=== PATIENT | female | born 1945 | race Caucasian/White ===

== ENCOUNTER 2017-05-02 10:00 | Outpatient (RCR) | payer MEDICARE, BC, SELFPAY | END 2017-05-23 | LOC: PT 10:00 | PROVIDERS: Visit Provider Orthopaedic Surgery | DX: S83.241A Other tear of medial meniscus, current injury, right knee, initial encounter (principal); M17.12 Unilateral primary osteoarthritis, left knee | CPT/HCPCS: G8978; G8979; G8980; 97010; 97014; 97016; 97033; 97035; 97110; 97140; 97161; G0283 ==

== ENCOUNTER → 2017-11-25 10:50 | Outpatient (CLI) | payer MEDICARE, BC, SELFPAY | PROVIDERS: PCP Internal Medicine; Visit Provider Internal Medicine | DX: Z01.810 Encounter for preprocedural cardiovascular examination (principal); I10 Essential (primary) hypertension | CPT/HCPCS: 93005 ==

== ENCOUNTER → 2018-04-14 09:25 | Outpatient (CLI) | payer MEDICARE, SELFPAY ==
--- NOTE | 2018-04-14 09:28 | XR_ITS ---
XR knee LT 3V ITS.REASON: Lt knee torn meniscus, left knee pain ORDERING PHYSICIAN: Keyana Lopez MD PATIENT AGE: 73 years COMPARISON: 12/04/2016 FINDINGS: Moderate osteoarthritic changes are present involving the medial compartment and patellofemoral joint. The medial joint space appears slightly more narrowed than when compared to the previous exam. No fracture or dislocation. No lytic or blastic change. IMPRESSION: Moderate osteoarthritis of the left knee slightly worsened when compared to the previous exam
== END ==
PROVIDERS: PCP Internal Medicine; Visit Provider Orthopaedic Surgery
DX: M25.562 Pain in left knee (principal)
CPT/HCPCS: 73562

== ENCOUNTER → 2018-06-17 08:32 | Outpatient (CLI) | payer MEDICARE, SELFPAY ==
--- NOTE | 2018-06-17 08:36 | MM_ITS ---
MM Dig screening mamm BI w/CAD CAD Screening COMPARISON: Digital mammograms with CAD 03/27/2016 and 03/21/2015 INDICATION: Is a history of breast cancer in a patient maternal cousin diagnosed before menopause. TECHNIQUE: Standard CC and MLO images were obtained. R2 CAD reviewed. FINDINGS: The breasts are composed primarily of fat with minimal scattered fibroglandular densities seen in each breast. There is a stable benign-appearing nodular density upper outer quadrant right breast there is a mole marker right breast. There is a small asymmetric density central portion right breast with associated microcalcifications. This was seen previously but there appears be a subtle change in density and possibly a couple of new microcalcifications associated. Recommend the patient return for spot compression magnification views in MLO and CC projection and ultrasound may be necessary as well. IMPRESSION: Fatty type breast parenchyma with possible change in asymmetric density right breast BI-RADS Category: 0 Need Additional Imaging Evaluation RECOMMENDED FOLLOW-UP: IMM - IMMEDIATE FOLLOW-UP RECOMMENDED (A letter has been sent to the patient regarding results of the study.)
== END ==
PROVIDERS: PCP Internal Medicine; Visit Provider Internal Medicine
DX: Z12.31 Encounter for screening mammogram for malignant neoplasm of breast (principal)
CPT/HCPCS: 77067

== ENCOUNTER → 2018-06-29 14:24 | Outpatient (CLI) | payer MEDICARE, BC, SELFPAY ==
--- NOTE | 2018-06-29 14:29 | MM_ITS ---
MM Dig mamm DX unilat RT CAD COMPARISON: Digital mammograms with CAD 06/17/2018 INDICATION: Evaluation of asymmetric density right breast and calcifications TECHNIQUE: Possible compression MLO and CC views and spot compression 90 degree lateral view FINDINGS: There is a collection of microcalcifications central portion of the right breast at approximately the 12:00 position with associated small irregular density. Has been interval increase in number of the microcalcifications since the previous digital mammogram with CAD 03/27/2016. The calcifications have a primarily benign appearance but S/P considered somewhat indeterminate and in view of the interval increase in calcifications from the previous study in 2016, recommend biopsy likely with stereotactic guidance. IMPRESSION: Asymmetric density with new microcalcifications upper central portion right breast, recommend biopsy BI-RADS Category: 4 Suspicious Abnormality-Biopsy Considered RECOMMENDED FOLLOW-UP: BIO - BIOPSY RECOMMENDED (A letter has been sent to the patient regarding results of the study.)
--- NOTE | 2018-06-29 14:30 | US_ITS ---
US breast RT complete COMPARISON: Diagnostic mammogram right breast same date HISTORY: Small asymmetric density with microcalcifications some of which appear to be new on diagnostic mammogram views TECHNIQUE: Targeted ultrasound upper inner quadrant FINDINGS: There is moderate fairly homogeneous echogenicity of the breast parenchyma. There is a tiny hypoechoic cystic-appearing lesion at the 12:00 position near the nipple measuring 0.3 x 0.3 x 0.3 cm. There is a similar appearing tiny hypoechoic cystic lesion at the 1:00 position near the nipple measuring 0.4 x 0.4 x 0.2 cm. There is no suspicious solid lesions seen. There are 2 normal-appearing nodes in the axilla. IMPRESSION: Tiny hypoechoic cystic lesions as described., No other significant abdomen I noted however in view of the new microcalcifications again I would recommend biopsy. BI-RADS Category 4
== END ==
PROVIDERS: PCP Internal Medicine; Visit Provider Internal Medicine
DX: R92.8 Other abnormal and inconclusive findings on diagnostic imaging of breast (principal)
CPT/HCPCS: 76641; 77065

== ENCOUNTER → 2018-07-07 11:25 | Outpatient (CLI) | payer MEDICARE, BC, SELFPAY ==
--- NOTE | 2018-07-07 11:52 | MM_ITS ---
MM stereotactic loc RT, MM clip placement RT ORDERING PHYSICIAN: Gray Arshad PATIENT AGE: 73 years Comparison: 06/17/2018 HISTORY: Right Breast calcifications PROCEDURE: The patient was given 1 mg of Xanax, Lortab 5 mg, and analgesia and minor sedation. The patient was placed on the stereotactic table and the abnormality was localized in the most appropriate projection. The breast was prepped in the routine manner, with sterile prep and the overlying skin anesthetized. A 3 to 4 mm skin incision was performed and the 9 gauge vacuum-assisted core biopsy needle was advanced to the region of the calcification in the upper aspect and medial aspect of the right breast. Pre- and post fire images were obtained. After adequate positioning relative to the calcifications was ensured, multiple biopsies were obtained in the region of the calcifications specifically. The core biopsies obtained were sent for specimen mammography. After the calcifications were indeed identified on the specimen mammogram, the procedure was terminated. A tiny titanium nonferromagnetic MicroMark was positioned through the mammotome needle into the biopsy site. The patient tolerated the procedure well left radiology suite in stable condition. No immediate consultation. SPECIMEN RADIOGRAPH: The mammographically evident calcifications from the prior study are currently evident within the [place] dish and within the specimens obtained during mammotome procedure. This is considered an adequate specimen and the procedure was terminated. Pathology: Benign breast with fibromatoid change. Microcalcifications were present. Negative for atypia or malignancy IMPRESSION: Successful stereotactic directed biopsy of the right breast showing benign findings. Right BREAST MAMMOGRAM: Compared to the prior study, the previously noted calcification have been removed. A small MicroMark clip was inserted into the region of the calcifications. Previously noted calcifications are no longer apparent There is evidence of soft tissue changes in the region of the biopsy was soft tissue gas and edema. IMPRESSION: 1. Adequate placement of the MicroMark clip postbiopsy. 2. Postbiopsy changes within the right breast with removal of calcifications
== END ==
PROVIDERS: PCP Internal Medicine; Visit Provider Internal Medicine
DX: R92.8 Other abnormal and inconclusive findings on diagnostic imaging of breast (principal)
CPT/HCPCS: 19081; 77065

== ENCOUNTER → 2018-08-26 10:07 | Outpatient (CLI) | payer MEDICARE, BC, SELFPAY ==
--- NOTE | 2018-08-26 10:17 | XR_ITS ---
EXAM: XR lumbar spine min 4V HISTORY: Low back pain ITS.REASON: RT LUMBAR BACK PAIN ORDERING PHYSICIAN: Gray Arshad PATIENT AGE: 73 years COMPARISON: None FINDINGS: There is mild dextroscoliotic curvature of the upper lumbar spine though this could be positional of the patient on the radiographic table. All lumbar vertebrae appear intact. There is a transitional vertebrae at the lumbosacral junction with almost complete lumbarization of S1 bilaterally. There is no significant disc space narrowing. However there are prominent hypertrophic facet changes throughout the entire lumbar spine but especially at the L4-5 and L5-S1 levels. There is no pars defect. The SI joints are normal. . 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
== END ==
PROVIDERS: PCP Internal Medicine; Visit Provider Internal Medicine
DX: M54.5 Low back pain (principal)
CPT/HCPCS: 72110

== ENCOUNTER 2018-10-01 10:00 | Outpatient (RCR) | payer MEDICARE, BC, SELFPAY | END 2018-10-01 10:05 | disposition home or self-care (01) | LOC: PT 10:00 | PROVIDERS: Visit Provider Internal Medicine | DX: M54.5 Low back pain (principal) | CPT/HCPCS: 97010; 97014; 97035; 97110; 97163; G0283 ==

== ENCOUNTER → 2019-07-21 10:51 | Outpatient (CLI) | payer MEDICARE, BC, SELFPAY ==
--- NOTE | 2019-07-21 10:52 | MM_ITS ---
PROCEDURE: MM DIG SCREENING MAMM BI W/CAD BILATERAL DIGITAL BREAST TOMOSYNTHESIS INCLUDED Patient Age:74Y CLINICAL INDICATION: SCREENING no hormones. No new complaints. Previous stereotactic biopsy right breast 2019. Maternal cousin with breast cancer in her 40s COMPARISON: [facility] DIG MAMM-SCREEN IVANA from 01/27/2013 [facility] DIG MAMM-SCREEN IVANA from 02/04/2014 [facility] DIG MAMM-SCREEN IVANA from 03/21/2015 [facility] DIG MAMM-SCREEN IVANA from 03/27/2016 [facility] MM Dig screening mamm BI w/CAD from 06/17/2018 DXRT MM Dig mamm DX unilat RT CAD from 06/29/2018 STRT MM stereotactic loc RT from 07/07/2018 CLIPRT MM clip placement RT from 07/07/2018 TECHNIQUE: Standard CC and MLO images were obtained. R2 CAD reviewed. Digital breast tomosynthesis included FINDINGS: Lower density breast with moderate of fatty replacement and minimal scattered fibroglandular elements. We also again see some scattered small nodular densities bilaterally reflecting benign features including a few likely reflecting small intramammary lymph nodes.. Left breast.: No new areas of concern. A few tiny scattered nodular densities again noted in can be followed.. Right breast. No significant new findings. There is a metallic micro marker clip from stereotactic biopsy which removed a small grouping of calcifications at the superior left breast, in 2019. No significant new findings otherwise. A few tiny scattered small nodular densities appears similar to previous studies and can be followed in 1 year IMPRESSION: No significant new findings. Bilateral follow-up mammogram 1 year recommended and would be encouraged. BI-RAD Category: 2 Benign Finding(s) FOLLOW-UP: 1YR 1 Year Follow-up (A letter has been sent to the patient regarding results of the study.) The the the the Dictated by: Raffy Sanderson MD 07/27/2019 09:51 Electronically signed by Raffy Sanderson MD in [place] 07/27/2019 09:51
== END ==
PROVIDERS: PCP Internal Medicine; Visit Provider Internal Medicine
DX: Z12.31 Encounter for screening mammogram for malignant neoplasm of breast (principal)
CPT/HCPCS: 77063; 77067

== ENCOUNTER → 2020-05-05 14:19 | Outpatient (CLI) | payer MEDICARE, BC, SELFPAY ==
--- NOTE | 2020-05-05 14:24 | XR_ITS ---
PROCEDURE: XR KNEE LT 4V CLINICAL INDICATION: Left knee pain COMPARISON: CR [id number] KNEE-3 VIEWS-LT from 12/04/2016 CR [id number] XR knee LT 3V from 04/14/2018 FINDINGS: Severe osteoarthritic changes are present involving the medial compartment with moderate osteoarthritis of the patellofemoral joint. No fracture or dislocation. Other findings:None. IMPRESSION: Severe osteoarthritic changes slightly worse Dictated by: Beni Virk MD 05/05/2020 17:03 Beni Virk MD in [place] 05/05/2020 17:03
== END ==
PROVIDERS: PCP Internal Medicine; Visit Provider Orthopaedic Surgery
DX: M17.12 Unilateral primary osteoarthritis, left knee (principal)
CPT/HCPCS: 73564

== ENCOUNTER → 2020-10-13 08:22 | Outpatient (CLI) | payer MEDICARE, OTHER, SELFPAY ==
--- NOTE | 2020-10-13 08:24 | MM_ITS ---
PROCEDURE INFORMATION: Exam: MG Screening 3D Mammography Exam date and time: 10/13/2020 8:24 AM Age: 75 years old Clinical indication: Encounter for screening mammogram for malignant neoplasm of breast TECHNIQUE: Imaging protocol: Screening tomosynthesis and 2D mammography including computer-aided detection (CAD) when performed. COMPARISON: 1. MG MM DIG SCREENING MAMM BI W/CAD 07/21/2019 11:02 AM 2. MG CLIPRT MM clip placement RT 07/07/2018 1:09 PM FINDINGS: MAMMOGRAPHY: Breast composition: The breast tissue is composed of scattered areas of fibroglandular density. Mass: None. Architectural distortion: None. Calcifications: No suspicious calcifications. Asymmetric density: None. Skin thickening: None. Axillary adenopathy: None. IMPRESSION: No mammographic evidence of malignancy. Annual screening is recommended unless otherwise clinically indicated. ASSESSMENT: BI-RADS Category 1: Negative
== END ==
PROVIDERS: PCP Internal Medicine; Visit Provider Internal Medicine
DX: Z12.31 Encounter for screening mammogram for malignant neoplasm of breast (principal)
CPT/HCPCS: 77063; 77067

== ENCOUNTER → 2021-02-12 11:27 | Outpatient (CLI) | payer MEDICARE, OTHER, SELFPAY | PROVIDERS: PCP Internal Medicine; Visit Provider Internal Medicine | DX: Z20.822 Contact with and (suspected) exposure to COVID-19 (principal); U07.1 COVID-19 | CPT/HCPCS: C9803; U0003; U0005 ==

== ENCOUNTER 2021-02-14 09:57 | Outpatient (CLI) | payer MEDICARE, OTHER, SELFPAY ==
[2021-02-14] VITALS (8 sets, daily range): BP systolic 107–140; BP diastolic 59–79; PULSE 57–89; RESP 18; TEMP 36.6–36.9; O2SAT 96–99
== END 2021-02-14 13:51 | disposition home or self-care (01) ==
PROVIDERS: PCP Internal Medicine; Visit Provider Emergency Medicine
DX: U07.1 COVID-19 (principal)
CPT/HCPCS: 96365

== ENCOUNTER 2021-03-25 11:43 | Emergency (ER) | payer MEDICARE, OTHER, SELFPAY ==
[2021-03-25 12:05] VITALS: BP 140/92; PULSE 74; RESP 17; TEMP 37; O2SAT 98; BMI 28.3
--- NOTE | 2021-03-25 12:43 | HMH.EDUTC ---
[facility] Disposition Clinical Impression: Low back pain with sciatica Qualifiers: Chronicity: unspecified Back pain laterality: right Sciatica laterality: sciatica of right side Qualified Code(s): M54.41 - Lumbago with sciatica, right side Disposition: Home, Self-Care Condition on Discharge: Good Instructions: Low Back Pain, DI for Low Back Pain, DI for Sciatica Additional Instructions: *Remember you had a Toradol shot in the clinic today, which is similar to Motrin *Not additional anti-inflammatory like ibuprofen motrin, aleve, advil with the above amount of Etodolac You can still take Tylenol every 4 hours as needed if you need something else for pain *Ice 20 minutes every 2 hours for the first 48 hours after the initial injury followed by moist heat every 20 minutes 3-4 times a day to affected area *Muscle relaxer every 8 hours as needed for muscle spasms or as you was previously prescribed but remember, it WILL cause drowsiness You cannot take it and drive, operate machinery or care for small children. *Keep this area active, no movement leads to more stiffness, However take it easy and avoid heavy lifting pushing or pulling *Follow up with you family doctor if no improvement for further treatment Prescriptions: Etodolac 200 mg PO Q8HP PRN #12 cap PRN Reason: Moderate Pain Transmission Status: Pending to Clinic Pharmacy [facility] Referrals: Gray Arshad [Primary Care Provider] - As needed Time of Disposition: 13:32 Medical Decision Making - Joe Inquiry Pt receiving controlled substance: No Joe was queried for this patient: No Vital Signs: 03/25/21 12:05 03/25/21 13:14 Temperature 98.6 F 98.6 F Temperature Source Oral Pulse Rate 74 Pulse Rate [Right Brachial] 74 Respiratory Rate 17 17 Blood Pressure 140/92 H Blood Pressure [Right Arm] 140/92 H Blood Pressure Mean [Right Arm] 108 Blood Pressure Source [Right Arm] Automatic Cuff Blood Pressure Position [Right Arm] Sitting 02 Sat by Pulse Oximetry 98 Oxygen Delivery Method Room Air Orders (Tests/Meds): ED MEDICATIONS Discontinued Medications Generic Name Dose Route Start Last Admin Trade Name Freq PRN Reason Stop Dose Admin Ketorolac Tromethamine 60 mg 03/25/21 12:50 03/25/21 13:09 Ketorolac 60mg/2ml Vial IM 03/25/21 12:51 60 mg ONCE ONE Administration Methylprednisolone Sodium Succinate 125 mg 03/25/21 12:50 03/25/21 13:09 Methylprednisolone Sod Succ 125mg Vial IM 03/25/21 12:51 125 mg ONCE ONE Administration ORDERS Category Date Time Status Lumbar spine XR 2-3 views [XR lumbar spine 2-3V] Stat Exams 03/25/21 12:49 Taken - Radiology Data #1 Image(s): L-Spine Image Reviewed: Yes I reviewed the patient's radiology image w/the ED provider Preliminary Findings: No Fracture Seen [facility] HPI - General Stated complaint: lower back pain Time Seen by Provider: 03/25/21 12:43 Mode of Arrival: Ambulatory Source of Information: Patient Limitations: No Limitations Description of Symptoms (Recalled from Triage Doc. by RN): PATIENT C/O RIGHT LOWER BACK PAIN RADIATING DOWN LEG THAT STARTED YESTERDAY HEENT Symptoms (Recalled from RN notes): No Resp Symptoms (Recalled from RN notes): No Skin Symptoms (Recalled from RN notes): No MS Symptoms (Recalled from RN notes): Yes Functional Status (Recalled from RN notes): WNL - History of Present Illness Provider Complaint: Patient states that she is scheduled to have knee replacement in a few weeks and she has been walking with a limp and has been favoring her left knee States that yesterday she started having some pain in her lower back and took one of her muscle relaxers that she has at home and it helped a little but she her back pain has continued to get worse over the night and now radiates into her right buttock and upper leg Denies known injury, denies loss of control of bowel and bladder - Related Data Home Medications Medication Instructions Recorded Linda
--- NOTE | 2021-03-25 12:49 | XR_ITS ---
PROCEDURE INFORMATION: Exam: XR Lumbosacral Spine Exam date and time: 03/25/2021 12:49 PM Age: 76 years old Clinical indication: Low back pain TECHNIQUE: Imaging protocol: XR of the lumbosacral spine. Views: 2 or 3 views. COMPARISON: CR [id number] XR lumbar spine min 4V 08/26/2018 10:31 AM FINDINGS: Bones/joints: No acute fracture. Mild dextroscoliosis. Prominent multilevel facet arthropathy. Soft tissues: Unremarkable. IMPRESSION: No acute findings.
[2021-03-25 13:14] VITALS: BP 140/92; PULSE 74; RESP 17; TEMP 37; O2SAT 98
== END 2021-03-25 13:38 | disposition home or self-care (01) ==
PROVIDERS: Emergency Provider Nurse Practitioner; PCP Internal Medicine
DX: M54.41 Lumbago with sciatica, right side (principal); E78.5 Hyperlipidemia, unspecified; I10 Essential (primary) hypertension; Z79.899 Other long term (current) drug therapy
CPT/HCPCS: G0463; 72100; 96372; 99202

== ENCOUNTER → 2021-03-30 16:31 | Outpatient (CLI) | payer MEDICARE, OTHER, SELFPAY | PROVIDERS: Visit Provider Internal Medicine | DX: N39.0 Urinary tract infection, site not specified (principal) | CPT/HCPCS: 87086; 87088; 87186 ==

== ENCOUNTER → 2021-04-14 09:05 | Outpatient (CLI) | payer MEDICARE, OTHER, SELFPAY ==
--- NOTE | 2021-04-14 | CA_ITS ---
APPROVED REPORT Left Lower Extremity Venous Study for DVT. [employer] Manager: Odette Mota RVT Indications Lower Extremity Edema: Left PT HAD TOTAL LT KNE REPLACEMENT 04/09/21. C/O EDEMA AND REDNESS OF LEFT THIGH Risk Factors Post OP Vein Imaging CFV (L): compressive, spontaneous, phasic, augmentation FEM (L): compressive, spontaneous, phasic, augmentation POP (L): compressive, spontaneous, phasic, augmentation PTV (L): Compressible GSV (L): Compressible Peroneals (L):Compressible GAS (L): Compressible Findings Study suggests no evidence of DVT or SVT of the left lower extremity. Unable to visualize distal left femoral vein r/t dressing covering. Conclusion Study suggests no evidence of DVT or SVT of the left lower extremity. Unable to visualize distal left femoral vein r/t dressing covering. Electronically signed by : Beni Virk MD 04/16/2021 11:29:01
== END ==
PROVIDERS: PCP Internal Medicine; Visit Provider Internal Medicine Adolescent Medicine
DX: R60.0 Localized edema (principal)
CPT/HCPCS: 93971

== ENCOUNTER 2021-07-27 14:00 | Outpatient (RCR) | payer MEDICARE, OTHER, SELFPAY | END 2021-07-30 14:05 | disposition home or self-care (01) | LOC: PT 14:00 | PROVIDERS: PCP Internal Medicine; Visit Provider Orthopaedic Surgery | DX: M54.50 Low back pain, unspecified (principal); M25.562 Pain in left knee; Z96.652 Presence of left artificial knee joint | CPT/HCPCS: 97010; 97014; 97110; 97140; 97163; 97164; G0283 ==

== ENCOUNTER → 2021-12-11 09:58 | Outpatient (CLI) | payer MEDICARE, OTHER, SELFPAY | PROVIDERS: PCP Internal Medicine; Visit Provider Internal Medicine | DX: Z20.822 Contact with and (suspected) exposure to COVID-19 (principal) | CPT/HCPCS: 97162; C9803; U0003; U0005 ==

== ENCOUNTER → 2021-12-20 10:58 | Outpatient (CLI) | payer MEDICARE, OTHER, SELFPAY ==
--- NOTE | 2021-12-20 11:03 | MM_ITS ---
PROCEDURE INFORMATION: Exam: MG Bilateral Screening 3D Mammography Exam date and time: 12/20/2021 11:05 AM Age: 76 years old Clinical indication: Screening examination TECHNIQUE: Imaging protocol: Bilateral Screening tomosynthesis and 2D mammography including computer-aided detection (CAD) when performed. COMPARISON: 1. MG MM DIG SCREENING MAMM BI W/CAD 10/13/2020 8:27 AM 2. MG MM DIG SCREENING MAMM BI W/CAD 07/21/2019 11:02 AM FINDINGS: MAMMOGRAPHY: Breast composition: There are scattered areas of fibroglandular density. Mass: None. Architectural distortion: None. Calcifications: No suspicious calcifications. Asymmetric density: None. Skin thickening: None. Axillary adenopathy: None. IMPRESSION: No mammographic evidence of malignancy. Annual screening is recommended unless otherwise clinically indicated. ASSESSMENT: BI-RADS Category 1: Negative
== END ==
PROVIDERS: PCP Internal Medicine; Visit Provider Internal Medicine
DX: Z12.31 Encounter for screening mammogram for malignant neoplasm of breast (principal)
CPT/HCPCS: 77063; 77067

== ENCOUNTER 2022-01-11 10:00 | Outpatient (RCR) | payer MEDICARE, OTHER, SELFPAY | END 2022-01-11 10:05 | disposition home or self-care (01) | LOC: PT 10:00 | PROVIDERS: PCP Internal Medicine; Visit Provider Internal Medicine | DX: I83.11 Varicose veins of right lower extremity with inflammation (principal); I83.12 Varicose veins of left lower extremity with inflammation | CPT/HCPCS: 97140; 97162 ==

== ENCOUNTER → 2022-08-09 11:19 | Outpatient (CLI) | payer MEDICARE, OTHER, SELFPAY ==
--- NOTE | 2022-08-09 11:25 | XR_ITS ---
FINAL REPORT CLINICAL HISTORY: . unable to move right thumb, no injury FINDINGS: Right fingers Four views were obtained. There is no acute fracture or dislocation. There are moderate and severe degenerative changes, worse involving the 1st carpometacarpal joint. There is a 3 mm loose body adjacent to the 1st carpometacarpal. There is widening of the scapholunate interval, scapholunate ligament tear is not excluded. IMPRESSION: Degenerative changes as detailed above. Loose body adjacent to the 1st carpometacarpal. Possible scapholunate ligament tear. If indicated, MRI may be helpful. Reviewed, Interpreted and Dictated by Obey Rodriguez III, MD Transcribed by Nettie Lanza Authenticated and [facility]
== END ==
PROVIDERS: PCP Internal Medicine; Visit Provider Internal Medicine
DX: M79.644 Pain in right finger(s) (principal); M25.341 Other instability, right hand
CPT/HCPCS: 73140

== ENCOUNTER → 2022-12-23 09:57 | Outpatient (CLI) | payer MEDICARE, OTHER, SELFPAY ==
--- NOTE | 2022-12-23 10:01 | MM_ITS ---
PROCEDURE INFORMATION: Exam: MG Bilateral Screening 3D Mammography Exam date and time: 12/23/2022 9:54 AM Age: 77 years old Clinical indication: Screening examination TECHNIQUE: Imaging protocol: Bilateral Screening tomosynthesis and 2D mammography including computer-aided detection (CAD) when performed. COMPARISON: 1. MG MM DIG SCREENING MAMM BI W/CAD 12/20/2021 11:05 AM 2. MG MM DIG SCREENING MAMM BI W/CAD 10/13/2020 8:27 AM 3. MG MM DIG SCREENING MAMM BI W/CAD 07/21/2019 11:02 AM FINDINGS: MAMMOGRAPHY: Breast composition: There are scattered areas of fibroglandular density. Mass: No suspicious masses. Architectural distortion: No suspicious distortion. Calcifications: No suspicious calcifications. Asymmetric density: None. Skin thickening: None. Axillary adenopathy: None. IMPRESSION: No mammographic evidence of malignancy. Annual screening is recommended unless otherwise clinically indicated. ASSESSMENT: BI-RADS Category 1: Negative
== END ==
PROVIDERS: PCP Internal Medicine; Visit Provider Internal Medicine
DX: Z12.31 Encounter for screening mammogram for malignant neoplasm of breast (principal)
CPT/HCPCS: 77063; 77067

== ENCOUNTER → 2023-02-12 11:18 | Outpatient (CLI) | payer MEDICARE, OTHER, SELFPAY ==
--- NOTE | 2023-02-12 11:36 | CT_ITS ---
FINAL REPORT TECHNIQUE: Axial images through the abdomen and pelvis were performed without contrast. This study was performed with techniques to keep radiation doses as low as reasonably achievable, (ALARA). Individualized dose reduction techniques using automated exposure control or adjustment of mA and/or kV according to the patient's size were employed. CLINICAL HISTORY: ABD PAIN COMPARISON: None FINDINGS: Abdomen: There is scarring in the lingula. The liver parenchyma is homogeneous. There is a gallstone within the dependent distended gallbladder. Calcified granulomas are noted in the spleen. The pancreas, adrenals and kidneys are unremarkable. There is a moderate amount of stool throughout the colon. Pelvis: The urinary bladder is unremarkable. The appendix is not visualized. There is no pelvic mass or inflammation. There is a fat containing left inguinal hernia. IMPRESSION: Gallstone distended gallbladder. No kidney stones. Moderate constipation. Reviewed, Interpreted and Dictated by Cuco Bowen MD Transcribed by Megha Staples Authenticated and [facility]
[2023-02-12 12:26] LABS: Basophils % 0.4 % (0.1-2.0); Eosinophils % 0.3 % (0.1-12.0); Hematocrit 46.6 % (37.0-47.0); Hemoglobin 15.1 g/dL (12.2-16.2); Lymphocytes # 1.9 K/mm3 (0.7-4.5); Lymphocytes % 18.2 % (10-50); Mean Corpuscular HGB Conc 32.4 g/dL (31.8-35.4); Mean Corpuscular Hemoglobin 28.8 pg (27.0-31.2); Mean Corpuscular Volume 88.8 fl (81-99); Mean Platelet Volume 8.6 fl (7.4-10.4); Monocytes # 0.5 K/mm3 (0.1-1.0); Neutrophils # 8.1 K/mm3 (1.8-7.8); Neutrophils % 76.1 % (37.0-80.0); Platelet Count 410 K/mm3 (142-424); Red Blood Count 5.25 M/mm3 (4.20-5.40); Red Cell Distribution Width 12.9 % (11.5-17.5); White Blood Count 10.6 K/mm3 (4.8-10.8)
== END ==
PROVIDERS: PCP Internal Medicine; Visit Provider Internal Medicine
DX: R10.30 Lower abdominal pain, unspecified (principal); R19.7 Diarrhea, unspecified; Z87.19 Personal history of other diseases of the digestive system
CPT/HCPCS: 36415; 74176; 85025

== ENCOUNTER → 2023-03-17 07:55 | Outpatient (CLI) | payer MEDICARE, OTHER, SELFPAY ==
--- NOTE | 2023-03-17 07:58 | US_ITS ---
FINAL REPORT CLINICAL HISTORY: ABD PAIN,GASTRITIS COMPARISON: None FINDINGS: Sonographic images of the right upper quadrant were obtained. The pancreas is partially obscured. There is fatty infiltration of the liver. Gallstone is noted in the gallbladder. There is no evidence of biliary ductal dilatation.The common duct measures 4mm. Limited images of the right kidney are unremarkable. IMPRESSION: Cholelithiasis. Fatty liver. Reviewed, Interpreted and Dictated by Obey Rodriguez III, MD Transcribed by Megha Staples Authenticated and [facility]
== END ==
PROVIDERS: PCP Internal Medicine; Visit Provider Internal Medicine
DX: R10.11 Right upper quadrant pain (principal); K29.70 Gastritis, unspecified, without bleeding
CPT/HCPCS: 76705

== ENCOUNTER 2023-10-09 12:09 | Emergency (ER) | payer MEDICARE, OTHER, SELFPAY ==
[2023-10-09] VITALS (9 sets, daily range): BP systolic 136–163; BP diastolic 58–101; PULSE 56–91; RESP 20–25; TEMP 36.5–36.7; O2SAT 96–99; BMI 30.9
--- NOTE | 2023-10-09 12:18 | ECG_ITS ---
APPROVED REPORT Exam: Resting ECG HR:73 bpm ECG Measurements Heart Rate 73 AXES [place] 142 P 70 QRSd 98 QRS 36 QT 381 T 72 QTc 406 Conclusion SINUS RHYTHM Electronically signed by : JESSICA CARRANZA, 10/09/2023 15:44:56
--- NOTE | 2023-10-09 12:22 | PC.NURSE ---
Dr. De Paz at bedside
--- NOTE | 2023-10-09 12:29 | XR_ITS ---
FINAL REPORT CLINICAL HISTORY: Acute cough, malaise, tachypnea FINDINGS: Two views of the chest were obtained. The heart size and pulmonary vascularity are within normal limits. The mediastinum is normal. There is mild linear atelectasis or scarring in the right midlung. There is no acute infiltrate. There is no pneumothorax. The bony thorax is intact. IMPRESSION: Mild linear atelectasis or scarring in the right midlung. Reviewed, Interpreted and Dictated by Obey Rodriguez III, MD Transcribed by Katy Miller Authenticated and [facility]
--- NOTE | 2023-10-09 12:38 | HMH.EDGENADL ---
Discharge Plan Disposition Patient Disposition: Home, Self-Care Prescriptions Prescriptions: New prednisone 20 mg tablet 40 mg PO DAILY 5 Days Qty: 10 0RF No Action etodolac 200 MG capsule 200 mg PO Q8HP PRN (Reason: Moderate Pain) Qty: 12 0RF simvastatin 40 MG tablet 40 mg PO DAILY losartan 100 MG tablet 100 mg PO DAILY Referrals Follow up/Referrals: Gray Arshad MD [Primary Care Provider] - See instructions Activity Restrictions/Add. Instructions Additional Instructions/Restrictions: Call your family doctor to establish care for this visit to the emergency department and schedule follow-up within 48 hours to ensure improvement. If you have any worsening of your condition or any other concerning signs or symptoms, return to the emergency department or your primary care doctor for further evaluation. Clinical Impressions Clinical Impression: URI (upper respiratory infection), Bronchitis Discharge ED Provider: Jelani De Paz General Adult HPI General Chief complaint: Shortness of Breath/Dyspnea Stated complaint: cough, congestion, dizzy, fever, nausea SOA Time Seen by Provider: 10/09/23 12:15 Mode of Arrival: Family Vehicle Source of Information: Patient, Spouse and Medical Record Limitations: No Limitations Description of Symptoms (Recalled from ER Triage Doc. by RN): Pt c/o sinus congestion, SOA, non-productive cough, headache, and weakness. States she saw Dr. Arshad earlier this week and was prescribed Amoxicillin & steriods. Pt has been taking Robutussin DM for her cough wo much relief. Pt also reports coughing so much she has been having some dry-heaves. States they did a home test for covid on Fri that was negative. History of Present Illness HPI narrative: 78-year-old female history of hypertension, hyperlipidemia presenting with general malaise. Patient states that she has had viral-like symptoms for about a week at this point. Had fevers last week, cough and sneezing all weekend, primarily at night. Cough is productive of white sputum that is thick. Saw her family doctor 3 days prior to this visit, was prescribed 1000 mg amoxicillin twice daily and Robitussin. Was given IM steroid injection. Patient states that she initially felt better, feeling worse again. Cough is still productive of clear to white sputum, no fevers in the past few days, no vomiting, diarrhea, abdominal pain, chest pain, recent sick contacts, or any other concerns. States that she just feels generally unwell and needs to feel better. Please note that above description of symptoms, in this electronic medical record under categorization of recalled from ER triage doctor by RN are reflective of an initial nursing assessment, however, is not reflective of my full history and physical exam that was personally taken and clarified. Consequentially, this preceding description of symptoms, which may include the patient's categorized chief complaint in the EMR, do not reflect my personal clinical impression, and the ultimate description of history of present illness and patient stated complaints should be deferred to this section of the note. Unless stated otherwise or congruent with this section of the note, additional signs, symptoms, or incongruence should be interpreted as inaccurate with my clinical impression. Related Data Home Medications Medication Instructions Recorded Confirmed losartan 100 mg tablet 100 mg PO DAILY Hypertension 01/03/18 03/25/21 simvastatin 40 mg tablet 40 mg PO DAILY High cholesterol 01/03/18 03/25/21 Previous Rx's Medication Instructions Recorded etodolac 200 mg capsule 200 mg PO Q8HP PRN Moderate Pain 03/25/21 #12 caps prednisone 20 mg tablet 40 mg (2 x 20 mg) PO DAILY 5 days 10/09/23 #10 tabs Allergies Allergy/AdvReac Type Severity Reaction Status Date / Time venom-honey bee Allergy Mild swelling-or Verified 08/18/20 14:07 [bee venom (honey bee)] al/throat HORSE DANDER AdvReac Unknown S-SWELLS-OR Uncoded 08/18/20 14:07 AL/THROAT PFSH PFSH Disclaimer: The information contained in this section may have been updated after the patient was seen, as this information can be updated by other users. Social History Smoking Status: Never smoker alcohol intake: never substance use type: denies use current occupational status: other Travel in the last 8 weeks: None caffeine: Yes ROS Obtained: Yes All systems reviewed & no additional complaints except as documented Physical Exam General General appearance: alert, in no apparent distress and other (Appears tired) Head Head exam: atraumatic and normocephalic Eye Eye exam: Present normal appearance, PERRL and EOMI ENT ENT exam: Present mucous membranes moist Neck Neck exam: Present normal inspection, full ROM and trachea midline Respiratory Respiratory exam: Present normal lung sounds bilaterally and other (Intermittently sniffling and coughing); Absent respiratory distress, wheezes, stridor, accessory muscle use or prolonged expiratory phase Cardiovascular Cardiovascular exam: Present regular rate and normal rhythm Abdominal Exam Abdominal exam: Present soft; Absent distention, tenderness, guarding, rebound or rigidity Extremities Exam Extremities exam: Present edema (Bilateral nonpitting (history of lymphedema)) Neurological Exam Neurological exam: Present alert, oriented X3, CN II-XII intact and normal gait; Absent motor sensory deficit Skin Skin exam: Present warm and dry; Absent diaphoresis or erythema Medical Decision Making Medical Records Medical records reviewed: Yes I reviewed the patient's medical records. Joe Inquiry Pt receiving controlled substance: No Joe was queried for this patient: No Vital Signs: 10/09/23 12:10 10/09/23 12:16 10/09/23 12:31 Temperature 97.7 F Temperature Source Oral Pulse Rate 91 H 70 Pulse Rate [Right] 82 Respiratory Rate 25 H Blood Pressure 163/101 H 151/72 H Blood Pressure [Right Arm] 163/101 H Blood Pressure Mean 126 98 Blood Pressure Mean [Right Arm] 121 Blood Pressure Source [Right Arm] Automatic Cuff 02 Sat by Pulse Oximetry 98 98 Oxygen Delivery Method Room Air 10/09/23 13:01 10/09/23 13:31 10/09/23 14:01 Temperature Temperature Source Pulse Rate 58 L 56 L 68 Pulse Rate [Right] Respiratory Rate Blood Pressure 155/81 H 153/63 H 136/58 L Blood Pressure [Right Arm] Blood Pressure Mean 105 93 84 Blood Pressure Mean [Right Arm] Blood Pressure Source [Right Arm] 02 Sat by Pulse Oximetry 98 96 99 Oxygen Delivery Method Lab Data Lab Results 10/09/23 12:24: WBC 9.2, RBC 5.02, Hgb 15.7, Hct 47.5 H, MCV 94.5, MCH 31.3 H, MCHC 33.1, RDW 13.7, Plt Count 288, MPV 9.4, Neut % (Auto) 78.1, Lymph % (Auto) 17.3, [place] % (Auto) 3.6, Eos % (Auto) 0.4, Baso % (Auto) 0.6, Neut # (Auto) 7.2, Lymph # (Auto) 1.6, [place] # (Auto) 0.3, Eos # (Auto) 0.0, Baso # (Auto) 0.1 10/09/23 12:50: Sodium 134 L, Potassium 3.9, Chloride 108 H, Carbon Dioxide 17 L, Anion Gap 12.9, BUN 13, Creatinine 0.60, Estimated Creat Clear 56, Estimated GFR 97, Est GFR ( Amer) 117, Glucose 124 H, Calcium 9.6, Total Bilirubin 0.5, AST 31, ALT 22, Alkaline Phosphatase 84, Troponin I < 0.01, Total Protein 7.3, Albumin 4.1, Globulin 3.2, Albumin/Globulin Ratio 1.3 10/09/23 12:24 10/09/23 12:50 Orders (Tests/Meds): ED MEDICATIONS Discontinued Medications Generic Name Dose Route Start Last Admin Trade Name Freq PRN Reason Stop Dose Admin Albuterol/Ipratropium 6 ml 10/09/23 13:24 10/09/23 13:40 Ipratropium/Albuterol 3 Ml Neb IH 10/09/23 13:25 6 ml ONCE ONE Administration ORDERS Category Date Time Status CXR 2 view (NOT portable) [XR chest 2V] Stat Exams 10/09/23 12:29 Completed CBC w/Auto Diff [Complete Blood Count Auto Diff] Stat Lab 10/09/23 12:24 Completed CMP [Comprehensive Metabolic Panel] Stat Lab 10/09/23 12:50 Results Procalcitonin Stat Lab 10/09/23 12:50 Results Trop I [Troponin I] Stat Lab 10/09/23 12:50 Results Troponin I Q3H Lab 10/09/23 15:45 Ordered Troponin I Q3H Lab 10/09/23 18:45 Ordered Medical Decision Narrative: 78-year-old female history of hypertension, hyperlipidemia presenting with general malaise. Patient states that she has had viral-like symptoms for about a week at this point. Had fevers last week, cough and sneezing all weekend, primarily at night. Cough is productive of white sputum that is thick. Saw her family doctor 3 days prior to this visit, was prescribed 1000 mg amoxicillin twice daily and Robitussin. Was given IM steroid injection. Patient states that she initially felt better, feeling worse again. Cough is still productive of clear to white sputum, no fevers in the past few days, no vomiting, diarrhea, abdominal pain, chest pain, recent sick contacts, or any other concerns. States that she just feels generally unwell and needs to feel better. History was obtained via conversation with patient and. On arrival, patient hemodynamically stable, alert, oriented x4, appropriate, GCS 15, moving all extremities spontaneously, pupils equal and reactive to light. Full physical exam performed and significant for tired appearing woman in no acute distress. Lungs are clear to auscultation bilaterally anterior and posteriorly, intermittently coughing and sniffling. Afebrile, normotensive/hypertensive, nontachycardic. Saturating appropriately on room air around 100%. Cardiac exam within normal limits. Differential includes viral syndrome, pneumonia, ACS, NV, among others. Patient was given a neb for symptomatic management and correction of underlying abnormalities. Workup independently interpreted and significant for nonactionable CBC or chemistry. Troponin negative. Chest x-ray without acute cardiopulmonary airspace disease, C radiology read for full review of final results. Independent interpretation of EKG shows sinus rhythm 73 beats minute no acute hearing changes concerning for ischemia. CA, QRS, QT intervals within normal limits. Heart score 2. On reevaluation patient still coughing and sneezing. Is recommended the patient stop taking amoxicillin given no evidence of pneumonia on chest x-ray. Likely representing URI, developing bronchitis. Because patient at baseline without signs or symptoms of clinical decompensation, deemed appropriate for discharge. Results were relayed to patient who voiced understanding and were agreeable to outpatient management and follow up. I discussed my clinical impression with patient and answered all questions. At this time, the evidence for any other entities in the differential is insufficient to warrant any further testing or ED observation. This was explained as well. Advisory was given that persistent or worsening symptoms require further evaluation. I confirmed the understanding of this discussion. [place] disclaimer Much of this encounter note is an electronic anesthesiology physician assistant spoken language to printed text. Electronic anesthesiology physician assistant of the spoken language may permit errors. Although I have reviewed the note, some errors may still exist. Critical Care Critical Care Time Critical Care Time: No
[2023-10-09 12:49] LABS: Basophils # 0.1 K/mm3 (0-0.2); Basophils % 0.6 % (0.1-2.0); Eosinophils % 0.4 % (0.1-12.0); Hematocrit 47.5 % (37.0-47.0); Hemoglobin 15.7 g/dL (12.2-16.2); Lymphocytes # 1.6 K/mm3 (0.7-4.5); Lymphocytes % 17.3 % (10-50); Mean Corpuscular HGB Conc 33.1 g/dL (31.8-35.4); Mean Corpuscular Hemoglobin 31.3 pg (27.0-31.2); Mean Corpuscular Volume 94.5 fl (81-99); Mean Platelet Volume 9.4 fl (7.4-10.4); Monocytes # 0.3 K/mm3 (0.1-1.0); Monocytes % 3.6 % (1.7-9.3); Neutrophils # 7.2 K/mm3 (1.8-7.8); Neutrophils % 78.1 % (37.0-80.0); Platelet Count 288 K/mm3 (142-424); Red Blood Count 5.02 M/mm3 (4.20-5.40); Red Cell Distribution Width 13.7 % (11.5-17.5); White Blood Count 9.2 K/mm3 (4.8-10.8)
[2023-10-09 13:05] LABS: Chloride 108 mmol/L (98-107); Potassium 3.9 mmoL/L (3.5-5.1); Sodium 134 mmol/L (136-145)
[2023-10-09 13:08] LABS: Alanine Aminotransferase 22 U/L (12-78); Albumin Level 4.1 g/dl (3.5-5.0); Albumin/Globulin Ratio 1.3 (1.1-1.8); Alkaline Phosphatase 84 U/L (38-126); Anion Gap 12.9 mEq/L (5-15); Aspartate Amino Transferase 31 U/L (14-36); Bilirubin,Total 0.5 mg/dl (0.2-1.3); Blood Urea Nitrogen 13 mg/dl (7-17); Calcium 9.6 mg/dl (8.4-10.2); Carbon Dioxide 17 mmol/L (22.0-30.0); Creatinine Clearance Estimated 56 mL/min (50-200); Estimated Glomerular Filt Rate 97 ml/min (>60); GFR (African American) 117 ML/MIN (>60); Globulin 3.2 g/dL (1.3-3.2); Glucose 124 mg/dl (74-100); Total Protein,Serum 7.3 g/dl (6.3-8.2)
[2023-10-09 13:21] LABS: Troponin I < 0.01 ng/ml (0.00-0.034)
[2023-10-09] MEDS: IPRATROPIUM/ALBUTEROL 3 ML NEB 6 ML IH (13:40)
--- NOTE | 2023-10-09 14:42 | PC.NURSE ---
at d/c pt reports that she is gonna pass out . She is already laying down in bed and side rails up. BP is 158/80 and HR 70-75. States I'm fainting . Pt still speaking and moving limbs appropriately. Pt's states she does this all the time with blood-work .
== END 2023-10-09 14:47 | disposition home or self-care (01) ==
PROVIDERS: Emergency Provider Emergency Medicine; PCP Internal Medicine
DX: J20.9 Acute bronchitis, unspecified (principal); R05.9 Cough, unspecified; J06.9 Acute upper respiratory infection, unspecified; R53.81 Other malaise; I10 Essential (primary) hypertension; E78.5 Hyperlipidemia, unspecified
CPT/HCPCS: 71046; 80053; 84145; 84484; 85025; 93005; 99284

== ENCOUNTER 2023-10-11 12:51 | Emergency (ER) | payer MEDICARE, OTHER, SELFPAY ==
--- NOTE | 2023-10-11 14:08 | ED_ITS ---
Discharge Plan Disposition Patient Disposition: Home, Self-Care Condition: Good Prescriptions Prescriptions: New azithromycin [Zithromax] 250 mg tablet 250 mg PO UD DOSE PK Qty: 6 0RF Rx Instructions: Take two (2) tablets today, then one (1) tablet days #2 thru #5 benzonatate 100 mg capsule 100 mg PO TIDP PRN (Reason: Cough) Qty: 30 0RF No Action etodolac 200 MG capsule 200 mg PO Q8HP PRN (Reason: Moderate Pain) Qty: 12 0RF amoxicillin 500 mg capsule See Rx Instructions .ROUTE .COMPLEX Patient Comments: TAKE TWO CAPSULES BY MOUTH TWICE DAILY FOR 10 DAYS -- FINISH ALL MEDICINE -- Rx Instructions: TAKE TWO CAPSULES BY MOUTH TWICE DAILY FOR 10 DAYS -- simvastatin 40 MG tablet 40 mg PO DAILY losartan 100 MG tablet 100 mg PO DAILY prednisone 20 mg tablet 40 mg PO DAILY 5 Days Qty: 10 0RF Referrals Follow up/Referrals: Gray Arshad MD [Primary Care Provider] - See instructions Activity Restrictions/Add. Instructions Additional Instructions/Restrictions: Drink plenty of fluids. Take tylenol or ibuprofen for pain or fever. Take the medications as directed. Follow up with your regular doctor. GO TO THE ER FOR ANY WORSENING SYMPTOMS Clinical Impressions Clinical Impression: Bronchitis, Viral syndrome Instructions Patient Instructions: DI for Acute Bronchitis, DI for Viral Syndrome Discharge ED Provider: Norbert Arias [facility] General Stated complaint: nausea cough bodyache Time Seen by Provider: 10/11/23 14:08 Related Data Home Medications Medication Instructions Recorded Confirmed losartan 100 mg tablet 100 mg PO DAILY Hypertension 01/03/18 10/11/23 simvastatin 40 mg tablet 40 mg PO DAILY High cholesterol 01/03/18 10/11/23 amoxicillin 500 mg capsule See Rx Instructions .Route .COMPLEX 10/11/23 Previous Rx's Medication Instructions Recorded etodolac 200 mg capsule 200 mg PO Q8HP PRN Moderate Pain 03/25/21 #12 caps prednisone 20 mg tablet 40 mg (2 x 20 mg) PO DAILY 5 days 10/09/23 #10 tabs azithromycin 250 mg tablet 250 mg PO UD DOSE PK #6 tabs 10/11/23 (Zithromax) benzonatate 100 mg capsule 100 mg PO TIDP PRN Cough #30 caps 10/11/23 Allergies Allergy/AdvReac Type Severity Reaction Status Date / Time venom-honey bee Allergy Mild swelling-or Verified 10/11/23 14:27 [bee venom (honey bee)] al/throat HORSE DANDER AdvReac Unknown S-SWELLS-OR Uncoded 08/18/20 14:07 AL/THROAT PFSH [facility] Disclaimer: The information contained in this section may have been updated after the patient was seen, as this information can be updated by other users. Social History Smoking Status: Never smoker alcohol intake: never substance use type: denies use current occupational status: other Travel in the last 8 weeks: None caffeine: Yes ROS Obtained: Yes All systems reviewed & no additional complaints except as documented Constitutional Constitutional: Reports poor appetite Eyes Eyes: Reports system reviewed and no additional complaints, except as documented ENT Ears, Nose, Mouth, and Throat: Reports as per HPI Cardiovascular Cardiovascular: Reports system reviewed and no additional complaints, except as documented and Denies chest pain Respiratory Respiratory: Denies shortness of breath, Denies chest congestion, Reports cough, Denies stridor and Denies wheezing Gastrointestinal Gastrointestingal: Reports system reviewed and no additional complaints, except as documented; Denies abdominal pain, diarrhea or vomiting Musculoskeletal Musculoskeletal: Reports system reviewed and no additional complaints, except as documented and Denies arthralgias Integumentary/Breasts Skin/Breast: Reports system reviewed and no additional complaints, except as documented and Denies rash Neurologic Neurologic: Denies paresthesias Allergic/Immunologic Allergic/Immunologic: Denies wheezing Physical Exam General General appearance: alert and in no apparent distress Eye Eye exam: Present normal appearance, PERRL and EOMI ENT ENT exam: Present mucous membranes moist and normal external ear exam Expanded ENT Exam External ear exam: Present normal external inspection TM/Canal exam: Bilateral TM: erythema and bulging Nose exam: Absent sinus tenderness Nasal speculum exam: Bilateral: normal Mouth exam: Present normal external inspection; Absent drooling Teeth exam: Present normal inspection Throat exam: Present tonsillar erythema and tonsillomegaly Neck Neck exam: Present normal inspection, full ROM and trachea midline; Absent tenderness, lymphadenopathy or thyromegaly Chest Chest inspection: Present normal inspection and symmetric chest wall rise; Absent tenderness or rash Respiratory Respiratory exam: Present normal lung sounds bilaterally; Absent respiratory distress, wheezes, stridor or accessory muscle use Cardiovascular Cardiovascular exam: Present regular rate, normal rhythm and normal heart sounds Abdominal Exam Abdominal exam: Present soft; Absent distention, tenderness, guarding, rebound or rigidity Extremities Exam Extremities exam: Present normal inspection, full ROM and normal capillary refill; Absent tenderness or calf tenderness Back Exam Back exam: Present normal inspection and full ROM; Absent tenderness Neurological Exam Neurological exam: Present alert and oriented X3 Psychiatric Psychiatric exam: Present normal affect and normal mood Skin Skin exam: Present warm, dry, intact and normal color Lymphatic Lymphatic Findings: no adenopathy Medical Decision Making Medical Records Medical records reviewed: No I reviewed the patient's medical records. Joe Inquiry Pt receiving controlled substance: No Lab Data Lab results reviewed: Yes I reviewed the patient's lab results.
[2023-10-11 14:10] VITALS: BP 145/74; PULSE 70; RESP 18; TEMP 36.5; O2SAT 96; BMI 30.9
--- NOTE | 2023-10-11 14:28 | PC.NURSE ---
Sent full panel up to lab via tube system
[2023-10-11 14:32] LABS: Adenovirus,PCR Not Detected (NotDetected); Bordetella Pertussis Not Detected (NotDetected); Chlamydophila Pneumoniae, PCR Not Detected (NotDetected); Coronavirus 19, PCR Not Detected (NotDetected); Coronavirus 229E Not Detected (NotDetected); Coronavirus NL63 Not Detected (NotDetected); Coronavirus OC43 Not Detected (NotDetected); Coronovirus HKU1,PCR Not Detected (NotDetected); Human Metapneumovirus Not Detected (NotDetected); Influenza A, PCR Not Detected (NotDetected); Influenza AH1, 2009 Not Detected (NotDetected); Influenza AH1, PCR Not Detected (NotDetected); Influenza AH3,PCR Not Detected (NotDetected); Influenza B, PCR Not Detected (NotDetected); Mycoplasma Pneumoniae, PCR Not Detected (NotDetected); Parainfluenza 1, PCR Not Detected (NotDetected); Parainfluenza 2, PCR Not Detected (NotDetected); Parainfluenza 4, PCR Not Detected (NotDetected); Respiratory Syncytial Virus Not Detected (NotDetected); Rhinovirus/Enterovirus Not Detected (NotDetected)
--- NOTE | 2023-10-11 15:08 | PC.NURSE ---
Pt got a little flushed placed wet wash cloth on neck. We offered to send her to ED. She declined and stated that she feels better and wanted to go home.
[2023-10-11 15:22] VITALS: BP 145/74; PULSE 70; RESP 18; TEMP 36.5; O2SAT 96
[2023-10-11 16:56] LABS: Parainfluenza 3, PCR Detected (NotDetected)
== END 2023-10-11 15:22 | disposition home or self-care (01) ==
PROVIDERS: Emergency Provider Nurse Practitioner Family; PCP Internal Medicine
DX: J20.4 Acute bronchitis due to parainfluenza virus; B34.8 Other viral infections of unspecified site; R05.9 Cough, unspecified; R11.0 Nausea; M79.18 Myalgia, other site
CPT/HCPCS: 87581; 87632; 87635; 87798; 99212; 99214; G0463

== ENCOUNTER 2023-10-17 15:41 | Outpatient (CLI) | payer MEDICARE, OTHER, SELFPAY ==
[2023-10-17 15:56] LABS: Basophils # 0.1 K/mm3 (0-0.2); Basophils % 0.5 % (0.1-2.0); Eosinophils # 0.1 K/mm3 (0.0-0.4); Eosinophils % 0.9 % (0.1-12.0); Hemoglobin 14.7 g/dL (12.2-16.2); Lymphocytes # 2.2 K/mm3 (0.7-4.5); Lymphocytes % 14.3 % (10-50); Mean Corpuscular HGB Conc 33.5 g/dL (31.8-35.4); Mean Corpuscular Hemoglobin 31.1 pg (27.0-31.2); Mean Corpuscular Volume 92.8 fl (81-99); Mean Platelet Volume 9.1 fl (7.4-10.4); Monocytes # 0.7 K/mm3 (0.1-1.0); Monocytes % 4.6 % (1.7-9.3); Neutrophils # 12.2 K/mm3 (1.8-7.8); Neutrophils % 79.6 % (37.0-80.0); Platelet Count 356 K/mm3 (142-424); Red Blood Count 4.74 M/mm3 (4.20-5.40); Red Cell Distribution Width 14.1 % (11.5-17.5); White Blood Count 15.3 K/mm3 (4.8-10.8)
[2023-10-17 15:58] LABS: MANUAL DIFFERENTIAL MANUAL DIFFERENTIAL (MANUAL DIFF)
[2023-10-17 16:07] LABS: Blood Urea Nitrogen 14 mg/dl (7-17); Calcium 9.6 mg/dl (8.4-10.2); Carbon Dioxide 23 mmol/L (22.0-30.0); Chloride 102 mmol/L (98-107); Estimated Glomerular Filt Rate 61 ml/min (>60); GFR (African American) 73 ML/MIN (>60); Glucose 107 mg/dl (74-100); Sodium 135 mmol/L (136-145)
[2023-10-17 16:28] LABS: Lymphocytes % 16 % (10-50); Monocytes % 3 % (2-9); Neutrophils % 80 % (42-76); Platelet Estimate Normal; RBC Morphology Normal; Total Cells Counted 100
== END 2023-10-17 23:59 | disposition home or self-care (01) ==
LOC: LAB.DROPOF 15:41
PROVIDERS: PCP Internal Medicine; Visit Provider Internal Medicine
DX: R05.9 Cough, unspecified (principal); R53.83 Other fatigue; R53.1 Weakness; B34.9 Viral infection, unspecified
CPT/HCPCS: 80048; 85007; 85025

== ENCOUNTER 2023-11-25 15:18 | Outpatient (CLI) | payer MEDICARE, OTHER, SELFPAY ==
[2023-11-25 14:35] LABS: Basophils # 0.1 K/mm3 (0-0.2); Basophils % 0.9 % (0.1-2.0); Eosinophils # 0.2 K/mm3 (0.0-0.4); Eosinophils % 2.9 % (0.1-12.0); Hematocrit 45.3 % (37.0-47.0); Hemoglobin 14.8 g/dL (12.2-16.2); Lymphocytes # 1.4 K/mm3 (0.7-4.5); Lymphocytes % 23.3 % (10-50); Mean Corpuscular HGB Conc 32.7 g/dL (31.8-35.4); Mean Corpuscular Hemoglobin 31.2 pg (27.0-31.2); Mean Corpuscular Volume 95.4 fl (81-99); Mean Platelet Volume 9.7 fl (7.4-10.4); Monocytes # 0.3 K/mm3 (0.1-1.0); Monocytes % 5.4 % (1.7-9.3); Neutrophils # 4.1 K/mm3 (1.8-7.8); Neutrophils % 67.4 % (37.0-80.0); Platelet Count 305 K/mm3 (142-424); Red Blood Count 4.75 M/mm3 (4.20-5.40); Red Cell Distribution Width 14.2 % (11.5-17.5); White Blood Count 6.1 K/mm3 (4.8-10.8)
[2023-11-25 15:03] LABS: Alanine Aminotransferase 16 U/L (12-78); Albumin Level 4.3 g/dl (3.5-5.0); Albumin/Globulin Ratio 1.5 (1.1-1.8); Alkaline Phosphatase 88 U/L (38-126); Anion Gap 10.5 mEq/L (5-15); Aspartate Amino Transferase 30 U/L (14-36); Bilirubin,Total 0.8 mg/dl (0.2-1.3); Blood Urea Nitrogen 23 mg/dl (7-17); Calcium 9.6 mg/dl (8.4-10.2); Carbon Dioxide 27 mmol/L (22.0-30.0); Chloride 105 mmol/L (98-107); Chol/HDL Ratio 2.3 (1-3.5); Cholesterol 158 mg/dl (140-200); Estimated Glomerular Filt Rate 69 ml/min (>60); GFR (African American) 84 ML/MIN (>60); Globulin 2.9 g/dL (1.3-3.2); Glucose 88 mg/dl (74-100); HDL Cholesterol 69 mg/dl (40-60); Potassium 4.5 mmoL/L (3.5-5.1); Sodium 138 mmol/L (136-145); Total Protein,Serum 7.2 g/dl (6.3-8.2); Triglycerides 64 mg/dl (30-150); VLDL Cholesterol 13 mg/dL (0-40)
[2023-11-25 15:14] LABS: Direct LDL Cholesterol 63.72 mg/dL (100-129)
[2023-11-25 15:42] LABS: Hemoglobin A1C 5.5 % (4.0-6.0)
[2023-11-25 15:53] LABS: Vitamin B12 260 pg/mL (239-931)
[2023-11-26 10:19] LABS: Thyroid Stimulating Hormone 2.88 uIU/mL (0.465-4.68)
== END 2023-11-25 23:59 | disposition home or self-care (01) ==
LOC: LAB.DROPOF 15:18
PROVIDERS: PCP Internal Medicine; Visit Provider Internal Medicine
DX: R68.89 Other general symptoms and signs (principal); I10 Essential (primary) hypertension; E78.5 Hyperlipidemia, unspecified; R73.02 Impaired glucose tolerance (oral)
CPT/HCPCS: 80053; 80061; 82607; 83036; 84443; 85025

== ENCOUNTER 2023-12-12 16:01 | Outpatient (CLI) | payer MEDICARE, OTHER, SELFPAY ==
--- NOTE | 2023-12-12 16:02 | MR_ITS ---
FINAL REPORT TECHNIQUE: Multiplanar MR without contrast CLINICAL HISTORY: Speech difficulties, memory loss COMPARISON: None FINDINGS: Diffusion sequences show no signal abnormality to indicate acute infarct. 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 Moderate generalized atrophy is present. No mass, hemorrhage or edema is seen. Ventricles are normal. Major vascular flow voids are intact. IMPRESSION: Typical age-related changes. No evidence of mass or acute infarct. Reviewed, Interpreted and Dictated by Pauly Harrington MD Transcribed by Megha Staples Authenticated and [facility]
== END 2023-12-12 23:59 | disposition home or self-care (01) ==
LOC: RAD 16:02
PROVIDERS: PCP Internal Medicine; Visit Provider Internal Medicine
DX: R68.89 Other general symptoms and signs (principal); R47.9 Unspecified speech disturbances
CPT/HCPCS: 70551

== ENCOUNTER 2024-01-20 09:49 | Outpatient (CLI) | payer MEDICARE, OTHER, SELFPAY ==
--- NOTE | 2024-01-20 09:50 | MM_ITS ---
PROCEDURE INFORMATION: Exam: MG Bilateral Screening 3D Mammography Exam date and time: 01/20/2024 9:46 AM Age: 79 years old Clinical indication: Screening examination. TECHNIQUE: Imaging protocol: Bilateral Screening tomosynthesis and 2D mammography including computer-aided detection (CAD) when performed. COMPARISON: 1. MG MM DIG SCREENING MAMM BI W/CAD 12/23/2022 9:54 AM 2. MG MM DIG SCREENING MAMM BI W/CAD 12/20/2021 11:05 AM FINDINGS: MAMMOGRAPHY: Breast composition: There are scattered areas of fibroglandular density. Mass: None. Architectural distortion: None. Calcifications: No suspicious calcifications. Asymmetric density: None. Skin thickening: None. Axillary adenopathy: None. IMPRESSION: No mammographic evidence of malignancy. Annual screening is recommended unless otherwise clinically indicated. ASSESSMENT: BI-RADS Category 1: Negative
== END 2024-01-20 23:59 | disposition home or self-care (01) ==
LOC: RAD 09:50
PROVIDERS: PCP Internal Medicine; Visit Provider Internal Medicine
DX: Z12.31 Encounter for screening mammogram for malignant neoplasm of breast (principal)
CPT/HCPCS: 77063; 77067

== ENCOUNTER 2024-04-14 09:08 | Outpatient (CLI) | payer MEDICARE, OTHER, SELFPAY ==
[2024-04-14 09:52] LABS: Basophils # 0.1 K/mm3 (0-0.2); Eosinophils # 0.3 K/mm3 (0.0-0.4); Eosinophils % 5.6 % (0.1-12.0); Hematocrit 45.5 % (37.0-47.0); Hemoglobin 15.6 g/dL (12.2-16.2); Lymphocytes # 1.4 K/mm3 (0.7-4.5); Mean Corpuscular HGB Conc 34.3 g/dL (31.8-35.4); Mean Corpuscular Hemoglobin 31.1 pg (27.0-31.2); Mean Corpuscular Volume 90.6 fl (81-99); Monocytes # 0.4 K/mm3 (0.1-1.0); Monocytes % 6.5 % (1.7-9.3); Neutrophils # 3.7 K/mm3 (1.8-7.8); Platelet Count 276 K/mm3 (142-424); Red Blood Count 5.02 M/mm3 (4.20-5.40); Red Cell Distribution Width 13.5 % (11.5-17.5); White Blood Count 5.9 K/mm3 (4.8-10.8)
[2024-04-14 10:18] LABS: Alanine Aminotransferase 19 U/L (12-78); Albumin Level 4.2 g/dl (3.5-5.0); Albumin/Globulin Ratio 1.6 (1.1-1.8); Alkaline Phosphatase 80 U/L (38-126); Anion Gap 14.1 mEq/L (5-15); Aspartate Amino Transferase 28 U/L (14-36); Bilirubin,Total 0.9 mg/dl (0.2-1.3); Blood Urea Nitrogen 17 mg/dl (7-17); Calcium 9.3 mg/dl (8.4-10.2); Carbon Dioxide 23 mmol/L (22.0-30.0); Chloride 106 mmol/L (98-107); Estimated Glomerular Filt Rate 69 ml/min (>60); GFR (African American) 84 ML/MIN (>60); Globulin 2.6 g/dL (1.3-3.2); Glucose 106 mg/dl (74-100); Potassium 4.1 mmoL/L (3.5-5.1); Sodium 139 mmol/L (136-145); Total Protein,Serum 6.8 g/dl (6.3-8.2)
[2024-04-14 10:24] LABS: C-Reactive Protein 2.1 mg/L (0-4)
[2024-04-14 10:44] LABS: Erythrocyte Sedimentation Rate 23 mm/hr (0-30)
[2024-04-14 10:47] LABS: Thyroid Stimulating Hormone 4.39 uIU/mL (0.465-4.68)
[2024-04-14 11:22] LABS: Vitamin B12 948 pg/mL (239-931)
[2024-04-15 12:29] LABS: Rapid Plasma Reagin Ab Titer Non Reactive titer (NonRea<1:1)
[2024-04-15 17:26] LABS: Albumin 3.8 g/dL (2.9-4.4); Alpha-1-Globulin 0.2 g/dL (0.0-0.4); Alpha-2-Globulin 0.8 g/dL (0.4-1.0); Gamma Globulin 1.4 g/dL (0.4-1.8); Protein, Total 7.2 g/dL (6.0-8.5)
[2024-04-21 10:09] LABS: Antinuclear Antibodies (ANA) NEGATIVE; PDF SCANNED IMAGE
== END 2024-04-14 23:59 | disposition home or self-care (01) ==
LOC: LAB 09:09
PROVIDERS: PCP Internal Medicine; Visit Provider Specialist
DX: R47.9 Unspecified speech disturbances (principal); R68.89 Other general symptoms and signs; I10 Essential (primary) hypertension; E78.5 Hyperlipidemia, unspecified
CPT/HCPCS: 36415; 80053; 82607; 82746; 84155; 84165; 84443; 85025; 85651; 86038; 86140; 86225; 86235; 86334; 86593

== ENCOUNTER 2024-06-15 13:26 | Outpatient (CLI) | payer MEDICARE, OTHER, SELFPAY ==
[2024-06-15 12:47] LABS: Albumin Level 4.7 g/dl (3.5-5.0)
[2024-06-15 12:48] LABS: Chloride 101 mmol/L (98-107); Potassium 4.9 mmoL/L (3.5-5.1); Sodium 134 mmol/L (136-145)
[2024-06-15 12:50] LABS: Alanine Aminotransferase 20 U/L (12-78); Alkaline Phosphatase 87 U/L (38-126); Anion Gap 12.9 mEq/L (5-15); Aspartate Amino Transferase 31 U/L (14-36); Bilirubin,Total 0.9 mg/dl (0.2-1.3); Blood Urea Nitrogen 19 mg/dl (7-17); Carbon Dioxide 25 mmol/L (22.0-30.0); Estimated Glomerular Filt Rate 60 ml/min (>60); GFR (African American) 73 ML/MIN (>60)
[2024-06-15 12:51] LABS: Albumin/Globulin Ratio 1.7 (1.1-1.8); Calcium 9.6 mg/dl (8.4-10.2); Chol/HDL Ratio 1.8 (1-3.5); Cholesterol 141 mg/dl (140-200); Globulin 2.7 g/dL (1.3-3.2); Glucose 101 mg/dl (74-100); HDL Cholesterol 77 mg/dl (40-60); Magnesium 1.9 mg/dl (1.6-2.3); Total Protein,Serum 7.4 g/dl (6.3-8.2); Triglycerides 77 mg/dl (30-150); VLDL Cholesterol 15 mg/dL (0-40)
[2024-06-15 12:53] LABS: Erythrocyte Sedimentation Rate 10 mm/hr (0-30)
[2024-06-15 13:03] LABS: Direct LDL Cholesterol 52.39 mg/dL (100-129)
== END 2024-06-15 23:59 | disposition home or self-care (01) ==
LOC: LAB.DROPOF 13:27
PROVIDERS: PCP Internal Medicine; Visit Provider Internal Medicine
DX: R68.89 Other general symptoms and signs (principal); I10 Essential (primary) hypertension; E78.5 Hyperlipidemia, unspecified; G47.62 Sleep related leg cramps
CPT/HCPCS: 80053; 80061; 83735; 85651

== ENCOUNTER 2024-07-14 08:22 | Day surgery (SDC) | payer MEDICARE, OTHER, SELFPAY ==
[2024-05-25 10:18] VITALS: BMI 32.0
[2024-07-14 09:38] VITALS: BP 180/92; PULSE 105; RESP 18; TEMP 36.6; O2SAT 96
[2024-07-14] MEDS: LACTATED RINGERS 1000ML 1,000 ML 50 ML IV (09:49)
--- NOTE | 2024-07-14 10:06 | EXP.ANES.CKL ---
[facility] Disclaimer: The information contained in this section may have been updated after the patient was seen, as this information can be updated by other users. Medical History Hyperlipidemia Hypertension Surgical History Hx of left knee surgery Hx of cataract extraction Family History Other Coronary artery disease Social History (Updated 07/14/24 @ 09:46 by Diana Suarez RN) Smoking Status: Never smoker alcohol intake: never substance use type: denies use current occupational status: retired Travel in the last 8 weeks: None caffeine: Yes Have you lived/traveled outside [place] in past 30 days?: No Contact w/someone who lives/traveled outside [place] past 30 days?: No Exposure to someone with infectious disease in past 14 days?: No Do you have a fever (greater than 100.4 F or 38 C)?: No Have you tested positive for COVID-19: Yes Exposed to someone with COVID-19 in past 14 days?: No Do you have a sore throat?: No Do you have a cough?: No Do you have any weakness?: No Are you experiencing any nausea/vomitting?: No Do you have any diarrhea?: No Are you experiencing any unusual bleeding?: No Do you have any muscle aches/pain?: No Do you have any abdominal pain?: No Are you experiencing loss of taste or smell?: No [facility] Anesthesia Checklist Patient Identification Patient Identification: Verbal (Name & ) Structural Data Admitted From: Home Planned Operative Procedure/s: colonoscopy Consent for Planned Operative Procedure(s) Verified: Yes NPO Status Verified Time NPO: 00:00 Additional verifications Anesthesia Reactions: No Airway Assessment Mallampati Score:: Class II C-Spine Mobility Assessed: Yes TMJ Mobility Assessed: Yes Dentition: Good Dentition Neurological Assessment Level of Consciousness: Awake, Alert and Appropriate Anesthesia Plan Anesthesia Risk discussed: Yes Anesthesia Plan: Verified ASA Class: II Anesthesia Type: MAC
--- NOTE | 2024-07-14 10:33 | P.HP_ITS ---
History of Present Illness *Admission Date: 07/14/24 *Reason for visit:: Screening *History of present illness: Mrs. Groves is a 79-year-old female who is here for surveillance colonoscopy. The patient does have a prior history of diverticulitis (uncomplicated) and her last episode was more than 3 to 5 years ago. She also has a history of colon polyps. Her last colonoscopy in February 2018 revealed a single polyp ( Mucosal prolapse polyp) which was removed. The patient does stat e that her father had colon cancer in his 80s. The patient reports no abdominal pain, weight loss, change in her bowel habits or rectal bleeding. [facility] Disclaimer: The information contained in this section may have been updated after the patient was seen, as this information can be updated by other users. Medical History Hyperlipidemia Hypertension Surgical History Hx of left knee surgery Hx of cataract extraction Family History Other Coronary artery disease Social History (Updated 07/14/24 @ 09:46 by Diana Suarez RN) Smoking Status: Never smoker alcohol intake: never substance use type: denies use current occupational status: retired Travel in the last 8 weeks: None caffeine: Yes Have you lived/traveled outside US in past 30 days?: No Contact w/someone who lives/traveled outside US past 30 days?: No Exposure to someone with infectious disease in past 14 days?: No Do you have a fever (greater than 100.4 F or 38 C)?: No Have you tested positive for COVID-19: Yes Exposed to someone with COVID-19 in past 14 days?: No Do you have a sore throat?: No Do you have a cough?: No Do you have any weakness?: No Are you experiencing any nausea/vomitting?: No Do you have any diarrhea?: No Are you experiencing any unusual bleeding?: No Do you have any muscle aches/pain?: No Do you have any abdominal pain?: No Are you experiencing loss of taste or smell?: No Other Medical History Have you received the Flu Vaccine for this season: No Have you received the Pneumonia Vaccine: No Review of Systems Review of Systems Review of systems (narrative): Negative *Cardiovascular Comments: Negative *Gastrointestinal Comments: Negative *Genitourinary Comments: Negative *Musculoskeletal Comments: Negative *Neurologic Comments: Negative Meds Home Medications and Allergies Home Medications ?Medication ?Instructions ?Recorded ?Confirmed ?Type cyanocobalamin (vitamin B-12) 1,000 mcg PO DAILY #90 tabs 11/26/23 07/14/24 Rx 1,000 mcg tablet simvastatin 40 mg tablet 40 mg PO DAILY High cholesterol 12/24/23 07/14/24 Rx #90 tabs losartan 100 mg tablet 100 mg PO DAILY Hypertension #90 03/08/24 07/14/24 Rx tabs sodium,potassium,mag sulfates 17.5 See Rx Instructions PO .COMPLEX 05/21/24 07/14/24 Rx gram-3.13 gram-1.6 gram oral soln #354 mL (Suprep Bowel Prep Kit) New Prescriptions to Start Prescriptions: Allergies Allergy/AdvReac Type Severity Reaction Status Date / Time venom-honey bee (bee venom Allergy Mild swelling-or Verified 07/14/24 09:36 (honey bee)) al/throat HORSE DANDER AdvReac Unknown S-SWELLS-OR Uncoded 04/07/24 08:04 AL/THROAT Exam Data for Last 24 hours Vital signs and Labs for Last 24 Hours: Temp Pulse Resp BP Pulse Ox O2 Del Method 97.9 F 105 H 18 180/92 H 96 Room Air 07/14/24 09:38 07/14/24 09:38 07/14/24 09:38 07/14/24 09:38 07/14/24 09:38 07/14/24 09:38 *Routine HEENT Exam Head: Present normocephalic Eye: Present EOMI and PERRL ENT: Present mucous membranes moist *Routine Neck Exam Neck: Present supple *Routine Respiratory Exam Respiratory: Present CTA bilaterally *Routine Cardiovascular Exam Cardiovascular: Present RRR *Routine Abdominal Exam Abdominal: Present soft and normoactive bowel sounds; Absent tenderness *Routine Rectal Exam Rectal:: deferred *Routine Genitalia Exam Genitalia:: deferred *Routine Extremities Exam Extremities: Absent cyanosis, clubbing or edema *Routine Skin Exam Skin: Present warm; Absent rash *Routine Neurological Exam Neurological: Present alert and oriented X3 Assessment and Plan *Assessment and plan (1) Family history of colon cancer: Status: Acute Category: Medical Code(s): Z80.0 - Family history of malignant neoplasm of digestive organs (2) Personal history of colon polyps, unspecified: Status: Acute Category: Medical Code(s): Z86.0100 - Personal history of colon polyps, unspecified Plan A/P: 1. Personal history of colon polyps and family history is the pre procedural diagnosis. The patient will be anesthetized/sedated using MAC sedation. The patient has been seen and examined. Cardiac and lung assessment prior to the examination is stable. Proceed with planned surveillance colonoscopy
[2024-07-14 10:37] VITALS: O2SAT 99
--- NOTE | 2024-07-14 10:38 | HMH.PROCNOTE ---
[facility] Procedure Note Date: 07/14/24 Time: 10:58 Procedure Note:: Colonoscopy Procedure Report: Colonoscopy with cold snare polypectomy Endoscopist: Deon Lopez II, MD Referring physician: Gray Arshad MD Date of Procedure: July 14, 2024 Equipment: Olympus 190 variable stiffness pediatric colonoscope Sedation: MAC sedation Indication: Mrs. Groves is a 79-year-old female who is here for surveillance colonoscopy. The patient does have a prior history of diverticulitis (uncomplicated) and her last episode was more than 3 to 5 years ago. She also has a history of colon polyps. Her last colonoscopy in February 2018 revealed a single polyp (mucosal prolapse polyp) which was removed. The patient does state that her father had colon cancer in his 80s. The patient reports no abdominal pain, weight loss, change in her bowel habits or rectal bleeding. Procedure: Prior to the procedure, a history and physical exam was performed, and patient's medications and allergies were reviewed. The risks, benefits and alternatives of the sedation and procedure were discussed with the patient. All questions were answered and informed consent was obtained. The patient was brought to the procedure room. Patient identification and proposed procedure were verified by the physician and the nurse. The patient was placed in a left lateral decubitus position and the scope was passed under direct vision. Throughout the procedure, the patient's blood pressure, pulse, and oxygen saturations were monitored continuously. The colonoscopy was accomplished without difficulty. The patient tolerated the procedure well. Findings: On digital rectal examination there was normal rectal tone. There were no external hemorrhoids. The colonoscope was introduced through the anal canal to the rectum and advanced to the cecum. The ileocecal valve and appendiceal orifice were identified. The scope was advanced a short distance into the ileum which appeared grossly normal. The scope was then withdrawn into the colon. There were 5 colon polyps (cecum x 2 (3 and 5 mm), ascending x 1 (4 mm), descending x 1 (4 mm) and sigmoid x 1 (8 mm)). These were all removed via cold snare polypectomy. The cecum, ascending and transverse colon and mucosa were grossly normal. There were extensively scattered largemouthed diverticuli throughout the descending and sigmoid colon (LEFT colon). The rectum itself was normal. Upon retroflexion within the rectum there were grade 2 internal hemorrhoids. The preparation was excellent throughout with Lawton Preparation Score of 9. The cecal time was 14 minutes. Impression: 1. Colonic polyps x 5 2. Extensive left-sided diverticulosis 3. Grade 2 internal hemorrhoids Plan: I will follow-up the polyp histology and we will discuss whether further surveillance colonoscopy is warranted. I would encourage continued psyllium fiber supplementation on a maintenance basis.
[2024-07-14 11:01] VITALS: BP 120/66; PULSE 79; RESP 16; TEMP 36.2; O2SAT 91
[2024-07-14 11:11] VITALS: BP 125/69; PULSE 70; RESP 16; O2SAT 93
[2024-07-14 11:21] VITALS: BP 135/78; PULSE 76; RESP 16; O2SAT 96
[2024-07-14 11:30] VITALS: BP 129/78; PULSE 89; RESP 16; O2SAT 98
== END 2024-07-14 11:30 | disposition home or self-care (01) ==
PROVIDERS: PCP Internal Medicine; Visit Provider Internal Medicine Gastroenterology
PROC: 0DJD8ZZ Inspection of Lower Intestinal Tract, Via Natural or Artificial Opening Endoscopic (ICD-10-PCS; CPT 45378; principal; 2024-07-14 10:00)
DX: Z12.11 Encounter for screening for malignant neoplasm of colon (principal); Z86.0100 Personal history of colon polyps, unspecified; Z80.0 Family history of malignant neoplasm of digestive organs; K63.5 Polyp of colon; K57.30 Diverticulosis of large intestine without perforation or abscess without bleeding; K64.1 Second degree hemorrhoids
CPT/HCPCS: 45385; J7120

== ENCOUNTER 2024-12-21 10:45 | Outpatient (CLI) | payer MEDICARE, OTHER, SELFPAY ==
[2024-12-21 16:40] LABS: Hematocrit 44.9 % (37.0-47.0); Hemoglobin 14.9 g/dL (12.2-16.2); Immature Granulocytes % 0.4 %; Mean Corpuscular HGB Conc 33.2 g/dL (31.8-35.4); Mean Corpuscular Hemoglobin 30.7 pg (27.0-31.2); Mean Corpuscular Volume 92.4 fl (81-99); Nucleated Red Blood Cells % 0 %; Platelet Count 305 K/mm3 (142-424); Red Blood Count 4.86 M/mm3 (4.20-5.40); Red Cell Distribution Width-SD 46.0 fL; White Blood Count 7.4 K/mm3 (4.8-10.8)
[2024-12-21 18:36] LABS: Albumin Level 4.0 g/dl (3.5-5.0); Chloride 100 mmol/L (98-107)
[2024-12-21 18:37] LABS: Potassium 4.8 mmoL/L (3.5-5.1); Sodium 134 mmol/L (136-145)
[2024-12-21 18:39] LABS: Alanine Aminotransferase 19 U/L (12-78); Albumin/Globulin Ratio 1.1 (1.1-1.8); Alkaline Phosphatase 90 U/L (38-126); Anion Gap 11.8 mEq/L (5-15); Aspartate Amino Transferase 33 U/L (14-36); Bilirubin,Total 0.8 mg/dl (0.2-1.3); Blood Urea Nitrogen 18 mg/dl (7-17); Carbon Dioxide 27 mmol/L (22.0-30.0); Cholesterol 158 mg/dl (140-200); Creatinine,Serum 0.80 mg/dl (0.52-1.04); Estimated Glomerular Filt Rate 69 ml/min (>60); GFR (African American) 84 ML/MIN (>60); Globulin 3.7 g/dL (1.3-3.2); Total Protein,Serum 7.7 g/dl (6.3-8.2); Triglycerides 111 mg/dl (30-150)
[2024-12-21 18:40] LABS: Calcium 9.5 mg/dl (8.4-10.2); Glucose 86 mg/dl (74-100); HDL Cholesterol 59 mg/dl (40-60)
--- OUTSIDE RECORDS SUMMARY | 2024-12-22 12:33 | XMS_ITS | Clinical Summary ---
Author Organization [facility] Address [address] [place] [address] Care Team Providers Care Hydroelectric Plant Electrical Engineer Name Role Phone Gray Arshad MD Primary Care Provider [phone] Allergies No known active allergies Medications cyclobenzaprine (FLEXERIL) 5 MG tablet Take 5 mg by mouth 3 (Three) Times a Day As Needed for Muscle Spasms. Active famotidine (PEPCID) 20 MG tablet Take 20 mg by mouth Every Night. Active etodolac (LODINE) 200 MG capsule Take 200 mg by mouth Every 8 (Eight) Hours As Needed (PAIN). Active simvastatin (ZOCOR) 40 MG tablet Take 40 mg by mouth Every Night. Active losartan (COZAAR) 100 MG tablet Take 100 mg by mouth Daily. Active aspirin 81 MG EC tablet Take 1 tablet by mouth Daily As Needed for Mild Pain (JOINT PAIN). Resume after finishing daily ASA 325 mg for a month 1 Active oxyCODONE (Roxicodone) 5 MG immediate release tabletIndicatio ns:S/P total knee arthroplasty, left Take 1 tablet by mouth Every 4 (Four) Hours As Needed for Moderate Pain . 25 tablet 1 Active Ropivacine HCl-NaCl (NAROPIN)Indica tions:Acute Pain 20 mg/hr by Peripheral Nerve route Continuous. Indications: Acute Pain 1 Active Active Problems Problem Noted Date Diagnosed Date Postoperative pain 04/10/2021 Arthritis of left knee 04/09/2021 HTN (hypertension) 04/09/2021 Hyperlipidemia 04/09/2021 S/P total knee arthroplasty, left 04/09/2021 Social History Tobacco Use Types Packs/Day Years Used Date Smoking Tobacco: Never Smokeless Tobacco: Never Abuse Screen Answer Date Recorded Unsafe at Home or Work/School Not on file Feels Threatened by Someone? Not on file 01/2023 Does Anyone Keep You from Co ntacting Others or Doint Things Outside the Home? Not on file 03/03/2023 Physical Sign of Abuse Present Not on file 1 Housing Stability Answer Date Recorded Current Living Arrangements Not on file 01/2023 Potentially Unsafe Housing Conditions Not on erica e 03/03/2023 Family and Community Support Answer Bert e Recorded Help with Day-to-Day Activities Not on file 03/03/2023 Lonely or Isolated Not on file 03/03/2023 Employment Answer Date Recorded Do you want help finding or keeping work or a rubén b? Not on file 03/03/2023 Disabilities Answer Date Recorded Concentrating, Remembering, or Making Decisions Difficulty Not on file 03/03/2023 Doing Errands Independently Difficulty Not on fi le 03/03/2023 Education Answer Date Recorded Help with school or training? Not on file Preferred Language Not on file 03/03/2023 Comments No Sex and Gender Information Value Date Recorded Sex Assigned at Not on file Legal Sex Female 12:27 PM EDT Gender Identity Not on file Sexual Orientation Not on file Last Filed Vital Signs Vital Sign Reading Time Taken Comments Blood Pressure 137/68 04/10/2021 8:05 AM EST Pulse 106 04/10/2021 8:19 AM EST Temperature 36.8 C (98.3 F) 04/10/2021 8:05 AM EST Respiratory Rate 17 04/10/2021 8:05 AM EST Oxygen Saturation 95% 04/10/2021 8:05 AM EST Inhaled Oxygen Concentration - - Weight 74.5 kg (164 lb 3.9 oz) 04/09/2021 8:28 A M EST Height 157.5 cm (5' 2 ) 04/09/2021 8:28 AM EST Body Mass Index 30.04 04/09/2021 8:28 AM EST Plan of Treatment Health Maintenance Due Date Last Done Comments DXA SCAN 1945 LIPID PANEL 1945 TDAP/TD VACCINES (1 - Tdap) 01/11/1964 Pneumococcal Vaccine 50+ (1 of 1 - PCV) 1995 ZOSTER VACCINE (1 of 2) 1995 RSV Vaccine - Adults (1 - 1- dose 75+ series) 01/11/2020 ANNUAL PHYSICAL 03/29/2021 HEPATITIS C SCREENING 03/29/2021 COVID-19 Vaccine (3 - season) 01/25/202402/2021, 07/05/2020 INFLUENZA VACCINE 02/23/2025 Medical Devices Implanted Type Area Mine Deputy Device Identifier Shelf Expiration Date Model / Serial / Lot Cmt Bone Palacos R Hi/Visc 1x40 - [id number] Implanted:Qty : 2 on 04/09/2021 by Lars Arias MD at [facility] Implant Left: Knee [employer] [id number] 07/23/2022 [id number] / / [id number] Dev Contrl Tiss Stratafix Symm Pds Plus Portia Ct-1 45cm - [id number] Implanted:Qty : 1 on 04/09/2021 by Lars Arias MD at [facility] Implant Left: Knee ETHICON DIV OF J AND J [id number] / / [id number] Art Legion Cr Hf Xlpe Sz3to4 9mm - [id number] Implanted:Qty : 1 on 04/09/2021 by Lars Arias MD at [facility] Implant Left: Knee WU [employer] NEPHEW [id number] 12/23/2030 [id number] / / [id number] Comp Fem Legion Oxinium Cr Nrw Sz4 Lt - [id number] Implanted:Qty : 1 on 04/09/2021 by Lars Arias MD at [facility] Implant Left: Knee WU [employer] NEPHEW [id number] 07/03/2030 [id number] / / [id number] Base Tib/Kn Gen2 Nonpor Ti Sz3 Lt - [id number] Implanted:Qty : 1 on 04/09/2021 by Lars Arias MD at [facility] Implant Left: Knee WU [employer] NEPHEW [id number] 02/04/2025 [id number] / / [id number] Pat Gen2 Resrf 29mm - [id number] Implanted:Qty : 1 on 04/09/2021 by Lars Arias MD at [facility] Implant Left: Knee WU [employer] NEPHEW [id number] 08/15/2030 [id number] / / [id number] Totl Kn Mauricio Wu Nephew - [id number] Implanted:Qty : 1 on 04/09/2021 by Lasr Arias MD at [facility] Implant Left: Knee WU AND NEPHEW CAPKNEETOTA LSN2 / / Insurance MEDICARE A & B [facility] Care Teams Hydroelectric Plant Electrical Engineer Relationship Specialty Start Date End Date Gray Arshad MD [address] [place] [address] [place] [address] PCP - General Internal Medicine 03/29/21
--- OUTSIDE RECORDS SUMMARY | 2024-12-22 12:33 | XMS_ITS | Encounter Summary ---
Author Organization [email or web address] ([place], [place], [place], [place]) Address [address] [place] [address] Care Team Providers Care Administrative Intern Name Role Phone Unavailable Primary Care Provider Unavailabl e Reason for Referral * Consultation (Routine) - Closed Specialty Diagnoses / Procedures Referred By Nadya ko Referred To Contact Behavioral Health Diagnoses Forgetfulness Word finding difficulty Chela Vaughn [address] [place] [address] Phone: tel: Megha Brothers, [place] [address] [place] [address] Phone: tel: fax: Referral ID Status Reason Start Date Expiration Date V isits Requested Visits Authorized [id number] Closed Specialty Services Required 04/15/2024 04/15/2025 1 1 Electronically signed by [facility], Provider Not In The System, at 04/15/2024 8:37 AM EST Encounter Details Date Type Department Care Team (Late st Contact Info) Description 04/15/2024 Outside Orders [facility] Central Scheduling [address] [place] [address] Chela Vaughn [address] [place] [address] Forgetfulness (Primary Dx); Word finding difficulty Social History Tobacco Use Types Packs/Day Years Used Date Smoking Tobacco: Never Assessed Comments Unknown Sex and Gender Information Value Date Recorded Sex Assigned at Not on file Legal Sex Female 8:21 PM CDT Gender Identity Not on file Sexual Orientation Not on file documented as of this encounter Plan of Treatment Scheduled Referrals Name Type Priority Associated Diagnoses Order Schedule Ambulatory referral to Behavioral Health Outpatient Referral Routine Forgetfulness Word finding difficulty Expected: 04/15/2024, Expires: 04/15/2025 documented as of this encounter Visit Diagnoses Diagnosis Forgetfulness- Primary Other general symptoms Word finding difficulty documented in this encounter
--- OUTSIDE RECORDS SUMMARY | 2024-12-22 12:33 | XMS_ITS | Referral Summary ---
Author Organization [employer] ([place], [place], [place], [place]) Address [address] [place] [address] Care Team Providers Care Heel Top Lift Splitter Name Role Phone Unavailable Primary Care Provider Unavailabl e Social History Tobacco Use Types Packs/Day Years Used Date Smoking Tobacco: Never Assessed Comments Unknown Sex and Gender Information Value Date Recorded Sex Assigned at Not on file Legal Sex Female 8:21 PM CDT Gender Identity Not on file Sexual Orientation Not on file Plan of Treatment Not on file Insurance [place] [address] [place] [address]
--- OUTSIDE RECORDS SUMMARY | 2024-12-22 12:33 | XMS_ITS | Clinical Summary ---
Author Organization [facility] Address [address] [place] [address] Care Team Providers Care Echo Vasc Tech Name Role Phone Unavailable Primary Care Provider Unavailabl e Social History Tobacco Use Types Packs/Day Years Used Date Smoking Tobacco: Never Assessed Comments Unknown Sex and Gender Information Value Date Recorded Sex Assigned at Not on file Legal Sex Female 8:22 PM EDT Gender Identity Not on file Sexual Orientation Not on file Plan of Treatment Upcoming Encounters Date Type Department Care Team (Late st Contact Info) Description 01/07/2025 3:00 PM EDT Ovarian Cancer Screening [facility] Gynecology [address] [place] [address] Health Maintenance Due Date Last Done Comments [facility]-Bone Density Scan 1945 [facility]-Depression Screening 1945 [facility]-Hepatitis C Screening 1945 [facility]-/Child/Adol SDOH Screenings 1945 [facility]- SDOH Screenings 1963 [facility]-Adult SDOH Screenings 1963 [facility]-DTaP,Tdap,and Td Vaccines (1 - Tdap) 01/11/1964 [facility]-Pneumococcal Vaccine: 50+ Years (1 of 1 - PCV) 1995 [facility]-Zoster Vaccines (1 of 2) 1995 [facility]-RSV Vaccine: 60+ Years or (1 - 1-dose 75+ series) 01/11/2020 [id number] Vaccine ( - 2023- season) 2024 04/10/2022, 12/17/2021, 05/30/2021, Additional history exists [facility]-Influenza Vaccine (#1) 2025 HPV Vaccines Aged Out No longer eligi ble based on patient's age to complete this topic [facility]-HIB Vaccines Aged Out No longer e ligible based on patient's age to complete this topic [facility]-Hepatitis A Vaccines Aged Out No longer eligible based on patient's age to complete this topic [facility]-IPV Vaccines Aged Out No longer e ligible based on patient's age to complete this topic [facility]-Rotavirus Vaccines Aged Out No lo nger eligible based on patient's age to complete this topic
--- OUTSIDE RECORDS SUMMARY | 2024-12-22 12:33 | XMS_ITS | Clinical Summary ---
Author Organization [employer] ([place], [place], [place], [place]) Address [address] [place] [address] Care Team Providers Care Per Diem Clerk Name Role Phone Unavailable Primary Care Provider Unavailabl e Social History Tobacco Use Types Packs/Day Years Used Date Smoking Tobacco: Never Assessed Comments Unknown Sex and Gender Information Value Date Recorded Sex Assigned at Not on file Legal Sex Female 8:21 PM CDT Gender Identity Not on file Sexual Orientation Not on file Plan of Treatment Health Maintenance Due Date Last Done Comments DXA SCAN 1945 Depression Screening (12+) 1957 Tobacco Cessation Counseling and Screening (12+) 1957 Hepatitis C Screening 1963 DTAP/TDAP/TD VACCINES (1 - Tdap) 01/11/1964 Pneumococcal 50+ years (1 of 1 - PCV) 1995 Shingles Vaccine (Zoster) (1 of 2) 1995 Medicare Initial AWV [id number] 12/25/2010 Respiratory Syncytial Virus (RSV) Adult or (1 - 1-dose 75+ series) 01/11/2020 COVID-19 VACCINE (2023-2 5 season) 2024 04/10/2022, 12/17/2021, 05/30/2021, Additional history exists Falls Risk Screening 05/26/2024 Influenza Vaccine (#1) 2025 Insurance MEDICARE PART A B
== END 2024-12-21 23:59 | disposition home or self-care (01) ==
LOC: LAB.DROPOF 12-22 12:31
PROVIDERS: PCP Internal Medicine; Visit Provider Internal Medicine
DX: I10 Essential (primary) hypertension (principal); E78.5 Hyperlipidemia, unspecified; R00.2 Palpitations
CPT/HCPCS: 80053; 80061; 85025

== ENCOUNTER 2025-01-20 10:34 | Outpatient (CLI) | payer MEDICARE, OTHER, SELFPAY ==
--- NOTE | 2025-01-20 10:30 | MM_ITS ---
PROCEDURE INFORMATION: Exam: MG Bilateral Screening 3D Mammography Exam date and time: 01/20/2025 10:53 AM Age: 80 years old Clinical indication: Screening exam. TECHNIQUE: Imaging protocol: Bilateral Screening tomosynthesis and 2D mammography including computer-aided detection (CAD) when performed. COMPARISON: 1. MG MM DIG SCREENING MAMM BI W/CAD 01/20/2024 9:46 AM 2. MG MM DIG SCREENING MAMM BI W/CAD 12/23/2022 9:54 AM FINDINGS: MAMMOGRAPHY: Breast composition: There are scattered areas of fibroglandular density. Mass: No suspicious masses. Architectural distortion: None. Calcifications: No suspicious calcifications. Asymmetric density: None. Skin thickening: None. Axillary adenopathy: None. IMPRESSION: No mammographic evidence of malignancy. Annual screening is recommended unless otherwise clinically indicated. ASSESSMENT: BI-RADS Category 1: Negative.
--- OUTSIDE RECORDS SUMMARY | 2025-01-20 10:38 | XMS_ITS | Clinical Summary ---
Author Organization Healthcare Address [address] [id number] Care Team Providers Care Manager Truck Name Role Phone Unavailable Primary Care Provider [...] Care Team (Late st Contact Info) Description 01/13/2026 2:00 PM EDT Ovarian Cancer Screening [facility] Gynecology [address] [facility] [place] [address] Health Maintenance Due Date Last Done Comments [facility]-Bone Density Scan 1945 [facility]-Depression Screening 1945 [facility]-Medicare Annual Wellness (AWV) 1945 [facility]-Infant/Child/Adol SDOH Screenings 1945 [facility]- SDOH Screenings 1963 [facility]-Adult SDOH Screenings 1963 [facility]-DTaP,Tdap,and Td Vaccines (1 - Tdap) 01/11/1964 [facility]-Pneumococcal Vaccine: 50+ Years (1 of 1 - PCV) 1995 [facility]-Zoster Vaccines (1 of 2) 1995 [facility]-RSV Vaccine: 60+ Years or (1 - 1-dose 75+ series) 01/11/2020 [id number] Vaccine ( - 2023- season) 2024 04/10/2022, [...] on patient's age to complete this topic Insurance
--- OUTSIDE RECORDS SUMMARY | 2025-01-20 10:38 | XMS_ITS | Clinical Summary ---
Author Organization [facility] Address [address] [place] [address] Care Team Providers Care Shoe Cementer Name Role Phone Gray Arshad MD Primary Care Provider [phone] Allergies No known active allergies Medications cyclobenzaprine [...] dose 75+ series) 01/11/2020 ANNUAL PHYSICAL 03/29/2021 COVID-19 Vaccine (3 - season) 01/25/202402/2021, 07/05/2020 INFLUENZA VACCINE 02/23/2025 Medical Devices Implanted Type Area Beverage Sales Consultant Device Identifier Shelf Expiration Date Model / Serial / Lot Cmt Bone Palacos R Hi/Visc 1x40 - [id number] Implanted:Qty : 2 on 04/09/2021 by Lars Arias MD at [facility] Implant Left: Knee [employer] [id number] 07/23/2022 [id number] / / [id number] Dev Contrl Tiss Stratafix Symm Pds Plus Portia Ct-1 45cm - [id number] Implanted:Qty : 1 on 04/09/2021 by Lars Arias MD at [facility] Implant Left: Knee ETH[employer]ON DIV OF J AND J [id number] / / Insrt Art Legion Cr Hf Xlpe Sz3to4 9mm - [id number] Implanted:Qty : 1 on 04/09/2021 by Lars Arias MD at [facility] Implant Left: Knee WU [employer] NEPHEW [id number] 12/23/2030 [id number] / / [id number] Comp Fem Legion Oxinium Cr Nrw Sz4 Lt - [id number] Implanted:Qty : 1 on 04/09/2021 by Lars Arias MD at [facility] Implant Left: Knee WU [employer] NEPHEW [id number] 07/03/2030 [id number] / / [id number] Base Tib/Kn Gen2 Nonpor Ti Sz3 Lt - [id number] Implanted:Qty : 1 on 04/09/2021 by Lars Arias MD at [facility] Implant Left: Knee WU [employer] NEPHEW [id number] 02/04/2025 [id number] / / [id number] Pat Gen2 Resrf 29mm - [id number] Implanted:Qty : 1 on 04/09/2021 by Lars Arias MD at [facility] Implant Left: Knee WU [employer] NEPHEW [id number] 08/15/2030 [id number] / / [id number] Totl Kn Mauricio Wu Nephew - [id number] Implanted:Qty : 1 on 04/09/2021 by Lars Arias MD at [facility] Implant Left: Knee WU AND NEPHEW [employer] LSN2 / / Insurance MEDICARE A & B Care Teams Shoe Cementer Relationship Specialty Start Date End Date Gray Arshad MD [address] [facility] [address] [place] [address] PCP - General Internal Medicine 03/29/21
--- OUTSIDE RECORDS SUMMARY | 2025-01-20 10:38 | XMS_ITS | Referral Summary ---
Author Organization [employer] ([place], [place], [place], [place]) Address [address] [place] [address] Care Team Providers Care Welding Machine Operator Name Role Phone Unavailable Primary Care Provider [...] on file Insurance [place] [address] [place] [address]
--- OUTSIDE RECORDS SUMMARY | 2025-01-20 10:38 | XMS_ITS | Encounter Summary ---
Author Organization [employer] ([place], [place], [place], [place]) Address [address] [place] [address] Care Team Providers Care Staff Attorney Name Role Phone Unavailable Primary Care Provider Unavailabl e Reason for Referral * Consultation (Routine) - Closed Specialty Diagnoses / Procedures Referred By Nadya ko Referred To Contact Behavioral Health Diagnoses Forgetfulness Word finding difficulty Chela Vaughn [address] [place] [address] Phone: tel: Megha Brothers, MS [address] [place] [address] Phone: tel: fax: Referral ID Status Reason Start Date Expiration Date V isits Requested Visits Authorized [id number] Closed Specialty Services Required 04/15/2024 04/15/2025 1 1 Encounter Details Date Type Department Care Team (Late st Contact Info) Description 04/15/2024 Outside Orders [facility] Central Scheduling [address] [place] [address] Chela Vaughn [address] [place] [address] Forgetfulness (Primary Dx); Word finding [...]
--- OUTSIDE RECORDS SUMMARY | 2025-01-20 10:38 | XMS_ITS | Clinical Summary ---
Author Organization [employer] ([place], [place], [place], [place]) Address [address] [place] [address] Care Team Providers Care Mask Layout Designer Name Role Phone Unavailable Primary Care Provider [...] Tobacco Cessation Counseling and Screening (12+) 1957 DTAP/TDAP/TD VACCINES (1 - Tdap) 01/11/1964 Pneumococcal [...]
== END 2025-01-20 23:59 | disposition home or self-care (01) ==
LOC: RAD 10:35
PROVIDERS: PCP Internal Medicine; Visit Provider Internal Medicine
DX: Z12.31 Encounter for screening mammogram for malignant neoplasm of breast (principal); R92.323 Mammographic fibroglandular density, bilateral breasts
CPT/HCPCS: 77063; 77067

== ENCOUNTER 2025-03-23 10:27 | Outpatient (CLI) | payer MEDICARE, OTHER, SELFPAY ==
--- NOTE | 2025-03-23 10:29 | XR_ITS ---
FINAL REPORT CLINICAL HISTORY: Lumbar back pain with spasms, right COMPARISON: None FINDINGS: 3 views of the lumbar spine were obtained. There is no evidence of fracture. There is no malalignment. The vertebrae are normal in height. There is 20 degrees of lumbar scoliosis convex to the right. Moderate facet sclerosis is noted in the lower lumbar spine. There is a large amount of stool in the colon consistent with constipation. IMPRESSION: No acute bony abnormality. Sclerosis. Constipation. Reviewed, Interpreted and Dictated by Cuco Bowen MD Transcribed by Megha Staples Authenticated and [facility]
--- OUTSIDE RECORDS SUMMARY | 2025-03-23 10:39 | XMS_ITS | Clinical Summary ---
Author Organization [facility] Address [address] [place] [address] Care Team Providers Care Aerospace Engineer Name Role Phone Gray Arshad MD Primary Care Provider [phone] Allergies No known active allergies Medications cyclobenzaprine [...] dose 75+ series) 01/11/2020 ANNUAL PHYSICAL 03/29/2021 INFLUENZA VACCINE 12/24/2024 COVID-19 Vaccine (3 - season) 01/24/202502/2021, 07/05/2020 Medical Devices Implanted Type Area Art Educator Device Identifier Shelf Expiration Date Model / Serial / Lot Cmt Bone Palacos R Hi/Visc 1x40 - [id number] Implanted:Qty : 2 on 04/09/2021 by Lars Arias MD at [facility] Implant Left: Knee [employer] [id number] 07/23/2022 [id number] / / [id number] Dev Contrl Tiss Stratafix Symm Pds Plus Portia Ct-1 45cm - [id number] Implanted:Qty : 1 on 04/09/2021 by Lars Arias MD at [facility] Implant Left: Knee ETH[employer] DIV OF J AND J [id number] / / [id number] Art Legion Cr Hf Xlpe Sz3to4 9mm - [id number] Implanted:Qty : 1 on 04/09/2021 by Lars Arias MD at [facility] Implant Left: Knee [employer] [id number] 12/23/2030 [id number] / / [id number] Comp Fem Legion Oxinium Cr Nrw Sz4 Lt - [id number] Implanted:Qty : 1 on 04/09/2021 by Lars Arias MD at [facility] Implant Left: Knee [employer] [id number] 07/03/2030 [id number] / / [id number] Base Tib/Kn Gen2 Nonpor Ti Sz3 Lt - [id number] Implanted:Qty : 1 on 04/09/2021 by Lars Arias MD at [facility] Implant Left: Knee [employer] [id number] 02/04/2025 [id number] / / [id number] Pat Gen2 Resrf 29mm - [id number] Implanted:Qty : 1 on 04/09/2021 by Lars Arias MD at [facility] Implant Left: Knee [employer] [id number] 08/15/2030 [id number] / / [id number] Totl Kn Mauricio Wu Nephew - [id number] Implanted:Qty : 1 on 04/09/2021 by Lars Arias MD at [facility] Implant Left: Knee W[employer] NEPHEW [id number] / / Insurance MEDICARE A & B Care Teams Aerospace Engineer Relationship Specialty Start Date End Date Gray Arshad MD [address] [facility] [address] [place] [address] PCP - General Internal Medicine 03/29/21
--- OUTSIDE RECORDS SUMMARY | 2025-03-23 10:39 | XMS_ITS | Clinical Summary ---
Author Organization Healthcare Address [address] [id number] Care Team Providers Care Plate Glass Polisher Name Role Phone Unavailable Primary Care Provider [...] 01/13/2026 2:00 PM EDT Ovarian Cancer Screening [facility] Gynecology [address] [facility] [place] [address] Health Maintenance Due Date Last Done Comments [...] or (1 - 1-dose 75+ series) 01/11/2020 [id number] Vaccine ( - 2024- season) 2025 04/10/2022, 12/17/2021, 05/30/2021, Additional history exists UKY-Influenza [...]
== END 2025-03-23 23:59 | disposition home or self-care (01) ==
LOC: RAD 10:28
PROVIDERS: PCP Internal Medicine; Visit Provider Internal Medicine
DX: M48.8X6 Other specified spondylopathies, lumbar region (principal); K59.00 Constipation, unspecified; M54.50 Low back pain, unspecified; M62.830 Muscle spasm of back
CPT/HCPCS: 72100

== ENCOUNTER 2025-03-24 15:00 | Outpatient (RCR) | payer MEDICARE, OTHER, SELFPAY ==
--- NOTE | 2025-03-22 10:01 | HMH.PTOPEV ---
PT Evaluation Rehab PT Outpatient Evaluation Start: 03/22/25 08:57 Freq: Status: Active Protocol: Document 03/22/25 08:57 JUANY (Rec: 03/22/25 10:01 JUANY [id number]) E-signed By Sherry Hoffman, PT Outpatient Therapy Subjective History Subjective History Pt is an 80 y/o female referred to PT for low back pain with muscle spasms. Pt reports intermittent right sided low back pain since doing exercises for a TKA 3 year ago. Pt reports worsening of symptoms over the past year without recent trauma or injury. Pt reports she went to the doctor and was prescribed a muscle relaxer which she states she takes at night because they make her sleepy but they do help with her symptoms . Pt reports she was also recommended a lumbar spine xray but has not heard from her doctor to schedule this yet. Pt with most recent lumbar spine imaging for review performed on 03/25/21 without acute findings and mild dextroscoliosis. Pt reports right-sided low jarocho pain is localized without radiating symptoms, paresthesia or b/b dysfunction. Pt reports pain is aggravated by rolling, getting in/out of the car, housework that involves bending forward, lifting, twisting, and prolonged standing. Pt reports such activities also make her right low back/hip muscles spasms which causes sharp pain. Medical History: Hyperlipidemia, Hypertension, Hx of L TKA in 2021 New diagnosis of No cancer in past 12 months? Chief Complaint Pain Symptom Type Sharp,Stabbing Symptoms Relieved By Rest/Positioning,Heat,OTC Meds Symptoms Aggravated Standing,Physical Activity,Twisting,Lifting By Current Functional Lifting,Housework Limitations Symptom Description Constant but Variable Level of pain today 3 (0-10) Pain scale - at its 0 best (0-10) Pain scale - at its 10 worst (0-10) Lumbopelvic Eval Posture Lumbar Spine Posture Decreased Lordosis Standing Position Palapation tenderness right lumbar spinal Yes tenderness buttock tenderness Yes Lumbar/Sacral Tenderness Palpation Findings Lumbar/Sacral 3/4 TTP of glute med, min, piriformis and greater Palpation Overall trochanter Comment Accessory Movement L-spine Vertebrae Central P/A Astatula,Right P/A Astatula Accessory Movements that Elicit Symptoms L3 bilateral L4 bilateral L5 bilateral Range of Motion Lumbar Spine Active 75 Flexion Range of Motion (degrees) Lumbar Spine Active 10 Extension Range of Motion (degrees) Left Lumbar Spine 5 p! Lateral Flexion Active Range of Motion (degrees) Right Lumbar Spine 8 p! Lateral Flexion Active Range of Motion (degrees) Manual Muscle Test Bilateral Knee Extension 5 Normal Strength Grade Knee Flexion 5 Normal Strength Grade Hip Flexion Strength 4 Good Grade Hip Abduction 4- Good- Strength Grade Hip Adduction 4 Good Strength Grade Hip External 4- Good- Rotation Strength Grade Hip Extension 4- Good- Strength Grade Ankle Dorsiflexion 5 Normal Strength Grade DTR Rt Patellar 2+ Lt Patellar 2+ Altered Sensation Bilateral Comment equal and intact to light touch sensation bilaterally Special Tests Hip Сергей (YARELI) Negative Left,Negative Right Test Sciatic Nerve Negative Left,Negative Right Tension Test Oswestry Index Section 1 Pain Intensity The pain comes and goes and is moderate Section 2 Personal Care ( change my way of washing or dressing in order to avoid Washing,Dresing) pain Section 3 Lifting lifting heavy weights off the floor, but I can manage if they are Section 4 Walking I cannot walk more than one mile wihtout increasing pain Section 5 Sitting I can sit in my favorite chair for as long as I like Section 6 Standing I cannot stand more than 1 hour without increasing pain Section 7 Sleeping I get pain in bed, but it does not prevent me from sleeping well Section 8 Social Life My social life is normal and gives me no extra pain Section 9 Traveling I get some pain when traveling, but none of my usual forms of travel m Section 10 Changing Degreee of My pain is gradually getting worse Pain Score and Risk Level Oswestry Score 16 Oswestry Risk Level Moderate Disability Outpatient Therapy Assessment Impairments Problems/ Palpation Tenderness,Impaired Range of Motion,Impaired Impairmments Strength,Impaired Transfers,Impaired Standing,Impaired Lifting,Impaired Household Care,Subjective C/O Pain, Impaired Self Care/Self Management Prognosis Rehab Potential Good Clinical Impression Consistent with Yes Diagnosis Additional details: 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 Verbalize compliance with HEP to assist with progress. 2. Improve pain at worst to 8/10 on VAS to improve overall QOL/function. 3. Improve tenderness to palpation of R gluteal mm to 1 -2/4 to assist with pain and function. 4. Perform bed mobility without pain to assist with function. PT Snf Patient 6 weeks: Goals 1. Improve lumbar AROM flex to 80, ext to 15, LF to 10 to assist with mobility and function. 2. Improve hip MMT to 4-4+/5 grossly to assist with function. 3. Improve tenderness to palpation of R gluteal mm to 0 -1/4 to assist with pain and function. 4. Improve JOSE score to 11 or less to improve overall QOL/function. 5. Improve pain at worst to 6/10 on VAS to improve overall QOL/function. 6. Report ability to transfer in/our of vehicle with pain <6/10 to assist with function. Outpatient Therapy Plan of Care Treatment Plan May Include Therapeutic Exercise Yes Including Home Exercise Program Manual Therapy Yes Techniques Neuromuscular Re- Yes education Therapeutic Yes Activities to Return to Previous Functional/Work Level ADL/Self Care Yes Education Mechanical Traction Yes Dry Needling Yes Thermal Modalities Yes Electrical Yes Stimulation Ultrasound/ Yes Phonophoresis Iontophoresis Yes Massage Yes Group Therapy for Yes Medicare Eval/Re-Eval Yes Frequency Times per week 2 Duration Number of Weeks 4-6 Addendums This patient is a No candidate for social or vocational rehab ? Patient/Guardian Yes verbally acknowledges understanding of treatment program and consents to further treatment? Patient/Guardian Yes verbally acknowledges understanding of diagnosis, prognosis and goals for treatment? Eval Complexity PT Charges 01005 - Low Complexity Shoulder/Elbow Eval Shoulder Objective Measurements Elbow Objective Measurements PHYSICIAN CERTIFICATION: I certify the specified therapy services for Komal Dee are required, authorized, and reviewed every 30 days.
== END 2025-03-24 23:59 | disposition home or self-care (01) ==
LOC: PT 15:00
PROVIDERS: PCP Internal Medicine; Visit Provider Internal Medicine
DX: M62.830 Muscle spasm of back (principal); M54.50 Low back pain, unspecified
CPT/HCPCS: 97110; 97140; 97161

== ENCOUNTER 2025-04-22 14:00 | Outpatient (RCR) | payer MEDICARE, OTHER, SELFPAY ==
--- NOTE | 2025-04-19 12:54 | HMH.RHREAS ---
Rehab Reassessment Rehab OP Re-assessment Start: 04/07/25 17:02 Freq: Status: Active Protocol: Document 04/19/25 11:30 JUANY (Rec: 04/19/25 12:53 AMANJose [id number]) E-signed By Sherry Hoffman, PT Oswestry Index Section 1 Pain Intensity The pain comes and goes and is moderate Section 2 Personal Care ( change my way of washing or dressing in order to avoid Washing,Dresing) pain Section 3 Lifting Pain prevents me from lifting weights off the floor Section 4 Walking I have some pain when walking but it does not increase with distance Section 5 Sitting I can sit in my favorite chair for as long as I like Section 6 Standing I cannot stand more than 1 hour without increasing pain Section 7 Sleeping I get no pain in bed Section 8 Social Life My social life is normal and gives me no extra pain Section 9 Traveling I get some pain when traveling, but none of my usual forms of travel m Section 10 Changing Degreee of My pain fluctuates, but overall is definitely getting Pain better Score and Risk Level Oswestry Score 10 Oswestry Risk Level Mild Disability Rehab Re-assessment Subjective Subjective Pt reports she feels 50% improved since starting PT. Pt reports her back is hurting more today after doing errands and getting in/out of the car s lot with report of 5/10 right sided low back pain. Pt reports she typically does not have pain except with prolonged standing and car transfers. Pt reports she is now able to perform bed mobility without issues. Pt states she is now only taking medication as needed to assist with pain instead of daily. Pt reports compliance with HEP which she states assists with pain. Objective Objective Notes Palpation: 1/4 TTP of right lumbar PS, no TTP of glute med/min or piriformis or lumbar motion segments Lumbar AROM: flex 75, ext 10, LF 10 RLE MMT: hip flex 4-/5 (p!), hip abd 4/5 (p!) Assessment Progress Assessment Progressing as Expected Assessment Notes Pt has attended 5 PT treatment sessions consisting of aerobic exercise, lumbar/hip mobility, LE strengthening , LE stretching, manual therapy and HEP with good tolerance. Pt demonstrated improved subjective report of pain, tenderness to palpation, and JOSE score this date compared to the initial evaluation. Pt continues to report moderate right-sided low back pain with car transfers and prolonged standing. Overall, the pt would continue to benefit from skilled PT to further improve subjective report of pain, lumbar AROM, strength and functional activity tolerance to improve overall QOL. PT Patient Goals PT Short Term 3 weeks: 08/27 Patient Goals 1. Verbalize compliance with HEP to assist with progress. -MET 2. Improve pain at worst to 8/10 on VAS to improve overall QOL/function. -MET 3. Improve tenderness to palpation of R gluteal mm to 1 -2/4 to assist with pain and function. -MET 4. Perform bed mobility without pain to assist with function. -MET PT Rn Labor And Delivery Patient 6 weeks: 08/29 Goals 1. Improve lumbar AROM flex to 80, ext to 15, LF to 10 to assist with mobility and function. -NOT MET 2. Improve hip MMT to 4-4+/5 grossly to assist with function. -NOT MET 3. Improve tenderness to palpation of R gluteal mm to 0 -1/4 to assist with pain and function. -MET 4. Improve JOSE score to 11 or less to improve overall QOL/function. -MET 5. Improve pain at worst to 6/10 on VAS to improve overall QOL/function. -MET 6. Report ability to transfer in/our of vehicle with pain <6/10 to assist with function. -MET (10/02) Plan Plan Continue initial POC to address remaining deficits Frequency of Therapy 2x/week Duration of Therapy 2-4 more weeks Therapeutic Exercise Yes Including Home Exercise Program Manual Therapy Yes Techniques Neuromuscular Re- Yes education Therapeutic Yes Activities to Return to Previous Functional/Work Level Gait Training Yes ADL/Self Care Yes Education Mechanical Traction Yes Dry Needling Yes Thermal Modalities Yes Electrical Yes Stimulation Ultrasound/ Yes Phonophoresis Iontophoresis Yes Massage Yes Group Therapy for Yes Medicare Eval/Re-Eval Yes Time and Billing Re-Eval Time 10 Re-Eval Billing 0 Units Charge for PT No reassessment? Charge for OT No reassessment? PHYSICIAN CERTIFICATION: I certify the specified therapy services for Komal Vera Luiz are required, authorized, and reviewed every 30 days.
== END 2025-04-22 23:59 | disposition home or self-care (01) ==
LOC: PT 14:00
PROVIDERS: PCP Internal Medicine; Visit Provider Internal Medicine
DX: M54.50 Low back pain, unspecified (principal)
CPT/HCPCS: 97110; 97140; 97530

== ENCOUNTER 2025-04-29 11:00 | Outpatient (RCR) | payer MEDICARE, OTHER, SELFPAY | END 2025-04-29 23:59 | disposition home or self-care (01) | LOC: PT 11:00 | PROVIDERS: PCP Internal Medicine; Visit Provider Internal Medicine | DX: M54.50 Low back pain, unspecified (principal); M62.830 Muscle spasm of back | CPT/HCPCS: 97110 ==